=== PATIENT | female | born 1945 | race Caucasian/White ===

== ENCOUNTER 2016-05-17 13:37 | Inpatient (IN) | payer BC, OTHER ==
[~2016-05-17] VITALS: Ht 167.6 cm; Wt 106.7 kg
[~2016-05-17 13:37] MED LIST: ACIT1CAP PO; AMIT50TA3 PO; AMLO2.5T PO; ASPCH81X PO; ATEN-175 PO; ATOR-22 PO; BACL10TA PO; CLOB-65 TOP; EZET10TA63 PO; FRS/40 PO; INSDGI SC; LISI-787 PO; MAGNESIUM PO; METH10TA6 PO; MULT-506 PO; NVLGI SC; OMEG10007 PO; TRAZ50TA35 PO
[2016-05-17] MEDS ORDERED: CLINDAMYCIN 600 MG/54 ML D5W IV ONE (14:45)
[2016-05-17] MEDS ORDERED: FLUT0.15 NAE (14:53)
[2016-05-17] MEDS ORDERED: DULO60CA44 PO (14:53)
[2016-05-17] MEDS ORDERED: DOXY50CA26 PO (14:53)
[2016-05-17] MEDS ORDERED: NYST1POW7 EXT (14:53)
[2016-05-17] MEDS ORDERED: SULF800T23 PO (14:53)
[2016-05-17] MEDS ORDERED: DOXY100C76 PO (14:53)
[2016-05-17] MEDS ORDERED: FLUO0.0566 TOP (14:53)
[2016-05-17] MEDS ORDERED: CLBPO15 TOP (14:53)
[2016-05-17] MEDS ORDERED: GLC/500 PO (14:53)
[2016-05-17] MEDS ORDERED: ALLO100T PO (14:53)
[2016-05-17] MEDS ORDERED: MAGN400T6 PO (14:53)
[2016-05-17 14:55] LABS: BASO % 0.2 %; BASO ABS # 0.02 K/uL (0-0.2); COMPLETE YES; EOS % 4.6 %; HEMATOCRIT 35.1 % (37-47); IG% 0.3 %; LYMPH % 15.3 %; LYMPH ABS # 1.66 K/uL (1.2-3.4); MEAN CORPUSCULAR HEMOGLOBIN 30.3 pg (25-34); MEAN CORPUSCULAR HGB CONC 33.6 g/dl (32-36); MEAN PLATELET VOLUME 10.9 fL (7.4-10.4); MONO % 8.4 %; NEUT % 71.2 %; PLATELET COUNT 170 K/uL (130-400); WHITE BLOOD COUNT 10.83 K/uL (4.8-10.8)
[2016-05-17 15:03] LABS: BUN/CREATININE RATIO 20.7 (10-20); CALCIUM 9.1 mg/dl (8.5-10.1); CREATININE 3.6 mg/dl (0.60-1.20); POTASSIUM 4.5 mmol/L (3.5-5.1)
[2016-05-17 15:06] LABS: C-REACTIVE PROTEIN 6.52 mg/dl (0-0.29)
--- NOTE | 2016-05-17 15:09 | EMERGENCY ROOM VISIT NOTE ---
History Report prepared by Selvin: Amanda Bourgeois Under the Supervision of: Dr. Des Lawson D.O. First contact with patient: 14:30 Chief Complaint: WOUND INFECTION Stated Complaint: BURN ON LEG Nursing Triage Summary: pt here with redness, swelling, drainage to ulcerated area x 5 days. pt has hx of diabetes History of Present Illness The patient is a 70 year old female who presents to the Emergency Room with complaints of a persistent, worsening infection to her left leg that began five days ago. The patient notes that she has a rash over her body as well. She denies any pain to her leg. The patient notes numbness to her legs. She states that she saw her PCP for the infection and was not started on any antibiotics. The patient notes a history of diabetes. She notes that she is a previous smoker 40 years ago, but denies any alcohol use. The patient denies any history of a previous SC. Source of History: patient Onset: five days ago Position: leg (left) Quality: other (infection) Timing: worsening, other (persistent) Associated Symptoms: + numbness, + rash Review of Systems See above for pertinent positives & negatives. A total of 10 systems reviewed and were otherwise negative. Past Medical & Surgical Medical Problems: (1) Diabetes (2) Diabetic foot infection Family History No pertinent family history stated. Social History Smoking Status: Former Smoker Alcohol Use: none Marital Status: Housing Status: lives with significant other Current/Historical Medications Scheduled Allopurinol (Zyloprim), 100 MG PO DAILY Amitriptyline Hcl (Amitriptyline Hcl), 2 TAB PO HS Amlodipine (Norvasc), 2.5 MG PO QAM Aspirin (Aspirin Chewable), 81 MG PO QPM Atenolol (Tenormin), 100 MG PO BID Atorvastatin (Lipitor), 20 MG PO QPM Baclofen (Lioresal), 10 MG PO BID Clobetasol Propionate (Clobetasol Propionate), 1 APPLN TOP BID Doxycycline (Monohydrate) (Doxycycline), 1 TAB PO BID Duloxetine Hcl (Cymbalta), 60 MG PO DAILY Ezetimibe (Zetia), 10 MG PO QPM Fish Oil ([place]-3), 1 CAP PO BID Fluocinonide (Fluocinonide), 1 APPLN TOP BID Fluticasone Propionate (Nasal) (Flonase Allergy Relief), 1 SPRAY AN HS Furosemide (Lasix), 20 MG PO QAM Insulin Aspart (Novolog), 25 UNITS SC ACHS Insulin Glargine (Lantus), 50 SC BID Lisinopril/Hctz (Zestoretic 20MG/12.5MG), 1 TAB PO QAM Magnesium Oxide (Mag-Ox), 400 MG PO DAILY Metformin Hcl (Glucophage), 500 MG PO BID Methimazole (Methimazole), 1 TAB PO QAM Multivitamin (Multivitamin), 1 TAB PO QPM Nystatin (Topical) (Nystatin), 1 APPL EXT TID Sulfa/Trimethoprim (Bactrim Ds 800MG/160MG), 1 TAB PO BID Allergies Coded Allergies: Amoxicillin (Verified Allergy, Intermediate, RASH, 05/17/16) Cephalexin (Verified Allergy, Intermediate, RASH, 05/17/16) Clavulanic Acid (Verified Allergy, Intermediate, RASH, 05/17/16) Gatifloxacin (Verified Allergy, Intermediate, RASH, 05/17/16) Oxycodone (Verified Allergy, Intermediate, RASH, 05/17/16) Physical Exam Vital Signs Date Time Temp Pulse Resp B/P Pulse Ox O2 Delivery O2 Flow Rate FiO2 05/17/16 15:21 84 18 102/48 93 Room Air 05/17/16 13:43 36.8 76 18 98/49 98 Room Air Physical Exam GENERAL: Patient is well appearing and in no acute distress. HEENT: No acute trauma, normocephalic atraumatic, mucous membranes moist, no nasal congestion, no scleral icterus. NECK: No stridor, no adenopathy, no meningismus, trachea is midline. LUNGS: No dyspnea. Clear to auscultation and equal bilaterally. No wheeze, no rhonchi. HEART: Regular rate and rhythm. No murmurs, rubs, gallops appreciated. ABDOMEN: Soft, nontender, bowel sounds positive, no masses appreciated, no peritonitis. BACK: No midline tenderness, no CVA tenderness EXTREMITIES: Pinpoint wound to the left heel. Cellulitis extending up to the tibial plateau that is circumferential and weeping. Mild lymphangitis. NEUROLOGIC: Alert and oriented, no acute motor or sensory deficits, no focal weakness, cranial nerves grossly intact. SKIN: No rash, no jaundice, no diaphoresis. Medical Decision & Procedures ER Provider Diagnostic Interpretation: X ray results and stated below per my interpretation and radiologist interpretation. Other radiology results and stated below per my review and radiologist interpretation: LEFT FOOT MIN 3 VIEWS ROUTINE CLINICAL HISTORY: CELLULITIS ON LEFT HEEL infection COMPARISON: None. DISCUSSION: Moderate generalized degenerative change. Moderate soft tissue edematous change. Heel spur with moderate ossification of the Achilles tendon insertion. No lytic or blastic process. IMPRESSION: Moderate soft tissue edema. Degenerative bony change. No acute bony abnormality. Electronically signed by: Keith Sorto M.D. 05/17/2016 3:48 PM Dictated Date/Time: 05/17/2016 3:47 PM LEFT TIBIA/FIBULA 2 VIEWS ROUTINE CLINICAL HISTORY: cellulitis wound on left heel pain COMPARISON: None. DISCUSSION: The bones and joint spaces appear intact. There is no evidence of fracture, dislocation or bony disease. Mild soft tissue edema IMPRESSION: Mild soft tissue edema. No acute bony abnormality. Electronically signed by: Keith Sorto M.D. 05/17/2016 3:49 PM Dictated Date/Time: 05/17/2016 3:48 PM Laboratory Results 05/17/16 14:25 Red Blood Count 3.90, Mean Corpuscular Volume 90.0, Mean Corpuscular Hemoglobin 30.3, Mean Corpuscular Hemoglobin Concent 33.6, Mean Platelet Volume 10.9, Neutrophils (%) (Auto) 71.2, Lymphocytes (%) (Auto) 15.3, Monocytes (%) (Auto) 8.4, Eosinophils (%) (Auto) 4.6, Basophils (%) (Auto) 0.2, Neutrophils # (Auto) 7.71, Lymphocytes # (Auto) 1.66, Monocytes # (Auto) 0.91, Eosinophils # (Auto) 0.50, Basophils # (Auto) 0.02 05/17/16 14:25 Test 05/17/16 14:25 05/17/16 15:00 05/17/16 15:42 05/17/16 15:43 White Blood Count 10.83 K/uL (4.8-10.8) Red Blood Count 3.90 M/uL (4.2-5.4) Hemoglobin 11.8 g/dL (12.0-16.0) Hematocrit 35.1 % (37-47) Mean Corpuscular Volume 90.0 fL (80-100) Mean Corpuscular Hemoglobin 30.3 pg (25-34) Mean Corpuscular Hemoglobin Concent 33.6 g/dl (32-36) Platelet Count 170 K/uL (130-400) Mean Platelet Volume 10.9 fL (7.4-10.4) Neutrophils (%) (Auto) 71.2 % Lymphocytes (%) (Auto) 15.3 % Monocytes (%) (Auto) 8.4 % Eosinophils (%) (Auto) 4.6 % Basophils (%) (Auto) 0.2 % Neutrophils # (Auto) 7.71 K/uL (1.4-6.5) Lymphocytes # (Auto) 1.66 K/uL (1.2-3.4) Monocytes # (Auto) 0.91 K/uL (0.11-0.59) Eosinophils # (Auto) 0.50 K/uL (0-0.5) Basophils # (Auto) 0.02 K/uL (0-0.2) RDW Standard Deviation 47.4 fL (36.4-46.3) RDW Coefficient of Variation 14.4 % (11.5-14.5) Immature Granulocyte % (Auto) 0.3 % Immature Granulocyte # (Auto) 0.03 K/uL (0.00-0.02) Erythrocyte Sedimentation Rate 58 mm/hr (0-21) Anion Gap 12.0 mmol/L (3-11) Est Creatinine Clear Calc Drug Dose 17.5 ml/min Estimated GFR () 13.9 Estimated GFR (Non- 12.0 BUN/Creatinine Ratio 20.7 (10-20) Calcium Level 9.1 mg/dl (8.5-10.1) Total Bilirubin 0.4 mg/dl (0.2-1) Direct Bilirubin 0.1 mg/dl (0-0.2) Aspartate Amino Transf (AST/SGOT) 25 U/L (15-37) Alanine Aminotransferase (ALT/SGPT) 47 U/L (12-78) Alkaline Phosphatase 93 U/L (45-117) C-Reactive Protein 6.52 mg/dl (0-0.29) Total Protein 7.7 gm/dl (6.4-8.2) Albumin 3.3 gm/dl (3.4-5.0) Lipase 96 U/L (73-393) Lactic Acid Level 1.4 mmol/L (0.4-2.0) Laboratory results as reviewed by me. Medications Administered Medications (Trade) Dose Ordered Sig/Brodie Route Start Time Stop Time Status Last Admin Dose Admin Clindamycin Phosphate (Cleocin 600mg/ 54ml D5W) 600 mg ONE ONCE IV 05/17/16 14:45 05/17/16 14:46 DC 05/17/16 14:45 600 MG ED Course 1432: The patient was evaluated in room C2B. A complete history and physical exam was performed. 1445: Ordered Clindamycin Phosphate 600 mg IV. 1537: I reevaluated the patient and she is resting comfortably. I discussed the exam findings and I discussed the treatment plan with her. She verbalized complete understanding and agreement. She is going to be evaluated for further treatment. 1545: Ordered Sodium Chloride 1000 ml @ 100 mls/hr IV. 1547: I discussed the patient's case with Yoav Luna. She is going to evaluate the patient for further treatment. Medical Decision Differential diagnosis: Etiologies such as cellulitis, abscess, MRSA infection, DVT, necrotizing fasciitis, dermatitis, drug eruption, as well as others were entertained. Patient is a 70-year-old female with significant past medical history for diabetes and recurrent lower extremity wound infections she is sent in by her primary care provider for worsening cellulitis and redness and streaking of the left lower extremity. Her primary care provider put her on a single Bactrim double strength 1 tablet twice a day she started this on the . She has failed an outpatient trial of therapy, accordingly and bring her in for lower extremity cellulitis starting her on 600 mg IV clindamycin and I have discussed her case with the hospitalist. Review of her basic metabolic panel revealed a creatinine of 3.6 and BUN is 74, her potassium is 4.5. Patient reports that she follows up with a cooler service supervisor for kidney issues I don't have any records indicating what her baseline creatinine may be. Consults Time Called: 1544 Consulting Physician: Yoav Luna Returned Call: 1547 I discussed the patient's case with Yoav Luna. She is going to evaluate the patient for further treatment. Impression Primary Impression: Cellulitis of left lower extremity Additional Impressions: Cellulitis of left foot Open wound of left foot Creatinine elevation Elevated BUN Anemia Hypoalbuminemia Elevated C-reactive protein (CRP) Elevated erythrocyte sedimentation rate Scribe Attestation The scribe's documentation has been prepared under my direction and personally reviewed by me in its entirety. I confirm that the note above accurately reflects all work, treatment, procedures, and medical decision making performed by me. Departure Information Dispostion Being Evaluated By Hospitalist Referrals Jennifer Diaz PA-C (PCP) Patient Instructions My [facility] Problem Qualifiers
--- NOTE | 2016-05-17 15:48 | History and Physical ---
History & Physical Date & Time of Service: May 17, 2016 at 15:44 Chief Complaint: Burn On Leg Primary Care Physician: Jennifer Diaz PA-C History of Present Illness Source: patient 70 yo F with past medical hx of Type 2 DM , HTN , scleroderma , Psoriasis . CKD stage 3 presented to ED with complain of pain , swelling and erythema of rt lower ext started since last pt denies of any trauma or injury to her leg , has chronic skin rash -for Psoriasis , scleroderma, gets occasional blisters lower 2/3 of her right leg was found to be dark red , increased warmth , minimum tenderness pt was able to walk , bear weight no fever or chills was seen by Rheumatology in recent visit started on Bactrim DS form 05/14/16 no improvement of symptom came to ED for evaluation found to have persisted rt lower ext Cellulitis , FAISAL Cr > 3 ( baseline Cr 1.4 ) pt will be admitted for IV abx for lower ext cellulitis , IV hydration and nephrology eval for FAISAL Past Medical/Surgical History Medical Problems: (1) Diabetes Status: Chronic Medical Problems: (1) Diabetes Status: Chronic Family History Sister-Arthritis Sister - CVA at age 49 ; /DM/HTN Sister- granulomatous dermatitis FATHER -COPD Social History Smoking Status: Former Smoker Marital Status: Allergies Coded Allergies: Amoxicillin (Verified Allergy, Intermediate, RASH, 05/17/16) Cephalexin (Verified Allergy, Intermediate, RASH, 05/17/16) Clavulanic Acid (Verified Allergy, Intermediate, RASH, 05/17/16) Gatifloxacin (Verified Allergy, Intermediate, RASH, 05/17/16) Oxycodone (Verified Allergy, Intermediate, RASH, 05/17/16) Home Medications Scheduled Allopurinol (Zyloprim), 100 MG PO DAILY Amitriptyline Hcl (Amitriptyline Hcl), 2 TAB PO HS Amlodipine (Norvasc), 2.5 MG PO QAM Aspirin (Aspirin Chewable), 81 MG PO QPM Atenolol (Tenormin), 100 MG PO BID Atorvastatin (Lipitor), 20 MG PO QPM Baclofen (Lioresal), 10 MG PO BID Clobetasol Propionate (Clobetasol Propionate), 1 APPLN TOP BID Doxycycline (Monohydrate) (Doxycycline), 1 TAB PO BID Duloxetine Hcl (Cymbalta), 60 MG PO DAILY Ezetimibe (Zetia), 10 MG PO QPM Fish Oil ([place]-3), 1 CAP PO BID Fluocinonide (Fluocinonide), 1 APPLN TOP BID Fluticasone Propionate (Nasal) (Flonase Allergy Relief), 1 SPRAY AN HS Furosemide (Lasix), 20 MG PO QAM Insulin Aspart (Novolog), 25 UNITS SC ACHS Insulin Glargine (Lantus), 50 SC BID Lisinopril/Hctz (Zestoretic 20MG/12.5MG), 1 TAB PO QAM Magnesium Oxide (Mag-Ox), 400 MG PO DAILY Metformin Hcl (Glucophage), 500 MG PO BID Methimazole (Methimazole), 1 TAB PO QAM Multivitamin (Multivitamin), 1 TAB PO QPM Nystatin (Topical) (Nystatin), 1 APPL EXT TID Sulfa/Trimethoprim (Bactrim Ds 800MG/160MG), 1 TAB PO BID Review of Systems Constitutional: + fatigue, + weakness Respiratory: No cough, No dyspnea at rest, No dyspnea on exertion, No hemoptysis, No problem reported, No shortness of breath, No sputum, No wheezing Cardiovascular: No PND, No chest pain, No claudication, No edema, No orthopnea , No palpitations, No problem reported Abdomen: No GI bleeding, No constipation, No diarrhea, No nausea, No pain, No problem reported, No vomiting Musculoskeletal: + problem reported (as per H&P ) Genitourinary - Female: No dysmenorrhea, No dysuria, No hematuria, No menorrhagia, No metrorrhagia, No , No problem reported, No rash, No urinary frequency, No urinary incontinence, No urinary retention, No urinary urgency, No vaginal bleeding, No vaginal discharge, No vaginal itching, No vulvodynia Neurologic: + weakness Physical Exam Vital Signs Date Time Temp Pulse Resp B/P Pulse Ox O2 Delivery O2 Flow Rate FiO2 05/17/16 15:21 84 18 102/48 93 Room Air 05/17/16 13:43 36.8 76 18 98/49 98 Room Air General Appearance: no apparent distress Head: normocephalic, atraumatic Eyes: normal inspection, PERRL, EOMI, sclerae normal Neck: thyroid normal, no carotid bruits, trachea midline Respiratory/Chest: chest non-tender, lungs clear, normal breath sounds, no respiratory distress Cardiovascular: regular rate, rhythm Abdomen/GI: normal bowel sounds, non tender, soft Extremities/Musculoskelatal: + pertinent finding (rt middle leg + ertythema , warmth , tenderness, ) Neurologic/Psych: no motor/sensory deficits, alert, normal mood/affect Skin: + pertinent finding (diffuse scaly plaque on elbow , extremitiy .Psoriatic rash ) Diagnostics Laboratory Results Results Past 24 Hours Test 05/17/16 14:25 05/17/16 15:00 05/17/16 15:42 05/17/16 15:43 Range/Units White Blood Count 10.83 4.8-10.8 K/uL Red Blood Count 3.90 4.2-5.4 M/uL Hemoglobin 11.8 12.0-16.0 g/dL Hematocrit 35.1 37-47 % Mean Corpuscular Volume 90.0 80-100 fL Mean Corpuscular Hemoglobin 30.3 25-34 pg Mean Corpuscular Hemoglobin Concent 33.6 32-36 g/dl Platelet Count 170 130-400 K/uL Mean Platelet Volume 10.9 7.4-10.4 fL Neutrophils (%) (Auto) 71.2 % Lymphocytes (%) (Auto) 15.3 % Monocytes (%) (Auto) 8.4 % Eosinophils (%) (Auto) 4.6 % Basophils (%) (Auto) 0.2 % Neutrophils # (Auto) 7.71 1.4-6.5 K/uL Lymphocytes # (Auto) 1.66 1.2-3.4 K/uL Monocytes # (Auto) 0.91 0.11-0.59 K/uL Eosinophils # (Auto) 0.50 0-0.5 K/uL Basophils # (Auto) 0.02 0-0.2 K/uL RDW Standard Deviation 47.4 36.4-46.3 fL RDW Coefficient of Variation 14.4 11.5-14.5 % Immature Granulocyte % (Auto) 0.3 % Immature Granulocyte # (Auto) 0.03 0.00-0.02 K/uL Erythrocyte Sedimentation Rate 58 0-21 mm/hr Sodium Level 140 136-145 mmol/L Potassium Level 4.5 3.5-5.1 mmol/L Chloride Level 102 98-107 mmol/L Carbon Dioxide Level 26 21-32 mmol/L Anion Gap 12.0 3-11 mmol/L Blood Urea Nitrogen 74 7-18 mg/dl Creatinine 3.60 0.60-1.20 mg/dl Est Creatinine Clear Calc Drug Dose 17.5 ml/min Estimated GFR () 13.9 Estimated GFR (Non- 12.0 BUN/Creatinine Ratio 20.7 10-20 Random Glucose 99 70-99 mg/dl Calcium Level 9.1 8.5-10.1 mg/dl Total Bilirubin 0.4 0.2-1 mg/dl Direct Bilirubin 0.1 0-0.2 mg/dl Aspartate Amino Transf (AST/SGOT) 25 15-37 U/L Alanine Aminotransferase (ALT/SGPT) 47 12-78 U/L Alkaline Phosphatase 93 45-117 U/L C-Reactive Protein 6.52 0-0.29 mg/dl Total Protein 7.7 6.4-8.2 gm/dl Albumin 3.3 3.4-5.0 gm/dl Lipase 96 73-393 U/L Lactic Acid Level 1.4 0.4-2.0 mmol/L Microbiology Results 05/17/16 Blood Culture, Received Pending 05/17/16 Blood Culture, Received Pending Impression Assessment and Plan RT LOWER EXTREMITY CELLULITIS : -no evidence of sepsis -mild leukocytosis, normal lactic acid -lower ext Doppler ordered to R/o DVT -blood culture ordered -empiric Abx with vancomycin Added Cipro for gram negative /Pseudomonas coverage ( pt is diabetic ) FAISAL ON CKD STAGE 3 presents with Cr 3.6 possible due to Bactrim pt reports of normal appetite , no diarrhea , no fever cr 1.4 on IV Hydration ( Bactrim D/rosalba -should be avoided in future as well ) Hold home diuretics -Lasix , HCTZ , ACEI follow PRP Nephrology consulted SCLERODERMA/PSORIASIS : follows with Rheumatology and Dermatology will change Diet to mechanical soft diet -new complaint of mild difficulty with swallowing. HTN : BP stable cont Atenolol 100 mg PO BID hold diuretics Due to FAISAL will hold Norvasc -will cause worsening of lower ext edema /fluid retention TYPE 2 DM: pt reports of episodes of hypoglycemia recent Hb A1c 6.3 -suggestive of too tight glycemic control on Large dose of Lantus 70 U in AM /50 U in PM SSI with NovoLog 25-35 U sub q as directed Lantus dose reduced to 30 U BID SSI adjusted pharmacy consulted for glycemic management FULL CODE DVT PROPHYLAX : moderate to high risk Sub q heparin Lower ext Doppler ordered to R/O DVT DISPOSITION : expected to return to home when medically stable will benefit form Home Health visiting nurse to assess improvement of cellulitis of lower ext Social service consulted Dr West will continue to follow the patient form tomorrow VTE Prophylaxis VTE Risk Assessment Done? Y/N: Yes Risk Level: Moderate
--- NOTE | 2016-05-17 15:50 | DIAGNOSTIC IMAGING REPORT ---
LEFT FOOT MIN 3 VIEWS ROUTINE CLINICAL HISTORY: CELLULITIS ON LEFT HEEL infection COMPARISON: None. DISCUSSION: Moderate generalized degenerative change. Moderate soft tissue edematous change. Heel spur with moderate ossification of the Achilles tendon insertion. No lytic or blastic process. IMPRESSION: Moderate soft tissue edema. Degenerative bony change. No acute bony abnormality. Electronically signed by: Keith Sorto M.D. 05/17/2016 3:48 PM Dictated Date/Time: 05/17/2016 3:47 PM
--- NOTE | 2016-05-17 15:51 | DIAGNOSTIC IMAGING REPORT ---
LEFT TIBIA/FIBULA 2 VIEWS ROUTINE CLINICAL HISTORY: cellulitis wound on left heel pain COMPARISON: None. DISCUSSION: The bones and joint spaces appear intact. There is no evidence of fracture, dislocation or bony disease. Mild soft tissue edema IMPRESSION: Mild soft tissue edema. No acute bony abnormality. Electronically signed by: Keith Sorto M.D. 05/17/2016 3:49 PM Dictated Date/Time: 05/17/2016 3:48 PM
[2016-05-17] MEDS ORDERED: NURSING DECISION MEDICATION ORDER SCH (16:00)
[2016-05-17 16:01] LABS: INR 1.1 (0.9-1.1)
[2016-05-17 18:03] VITALS: Ht 167.6 cm; Wt 106.7 kg
[2016-05-17 18:12] VITALS: BP 126/62; PULSE 90; TEMP 36.8; O2SAT 95
[2016-05-17] MEDS ORDERED: VANCOMYCIN INJ 1,000 MG in SODIUM CHLORIDE 0.9% 250ML 250 ML IV STA (19:31)
[2016-05-17] MEDS ORDERED: DEXTROSE 50% 50 ML SYR IV PRN (19:45)
[2016-05-17] MEDS ORDERED: GLUCOSE 10 TABS/TUBE PO PRN (19:45)
[2016-05-17] MEDS ORDERED: GLUCAGON FOR INJ 1 MG VIAL SQ PRN (19:45)
[2016-05-17] MEDS ORDERED: GLUCOSE 40% GEL 15 GM TUBE PO PRN (19:45)
[2016-05-17] MEDS ORDERED: PHARMACY GLYCEMIC MGMT CONSULT PRN (19:47)
[2016-05-17 20:00] VITALS: BP 145/76; PULSE 95; TEMP 36.9; O2SAT 98
[2016-05-17] MEDS ORDERED: VANCOMYCIN INJ 2,000 MG in SODIUM CHLORIDE 0.9% 500ML 500 ML IV SCH (20:00)
[2016-05-17] MEDS ORDERED: SODIUM CHLORIDE 0.9% 1000ML 1,000 ML IV SCH (20:00)
[2016-05-17] MEDS: SODIUM CHLORIDE 0.9% 1000ML 1,000 ML IV SCH (20:29)
[2016-05-17] MEDS ORDERED: CIPROFLOXACIN CONSULT ACTIVE PRN ×2 (20:45)
[2016-05-17] MEDS: NYSTATIN POWDER 15GM BTL EXT SCH (20:55)
[2016-05-17] MEDS: ATORVASTATIN 20 MG TAB PO SCH (20:56)
[2016-05-17] MEDS: CLOBETASOL PROPIONATE 0.05% OINT 15 GM TUBE EXT SCH (20:56)
[2016-05-17] MEDS: AMITRIPTYLINE HCL 100 MG TAB PO SCH (20:56)
[2016-05-17] MEDS: MULTIVITAMIN TAB PO SCH (20:57)
[2016-05-17] MEDS: OMEGA-3 (PURIFIED FISH OIL) 1 GM CAP PO SCH (20:57)
[2016-05-17] MEDS: EZETIMIBE 10MG TAB PO SCH (20:57)
[2016-05-17] MEDS: ASPIRIN 81 MG ECTAB PO SCH (20:58)
[2016-05-17] MEDS: BACLOFEN 10 MG TAB PO SCH (20:58)
[2016-05-17] MEDS ORDERED: VANCOMYCIN INJ 1,000 MG in SODIUM CHLORIDE 0.9% 250ML 250 ML IV SCH (21:00)
[2016-05-17] MEDS: INSULIN ASPART 100 UNITS/ML 3 ML PEN SC SCH (21:00)
[2016-05-17] MEDS ORDERED: INSULIN GLARGINE SOLOSTAR 100 UNITS/ML 3 ML PEN SC SCH (21:00)
[2016-05-17] MEDS ORDERED: INSULIN HUMAN REGULAR SC SCH (21:00)
[2016-05-17] MEDS: FLUTICASONE PROPIONATE NA SPR 16 GM BTL NAE SCH (21:03)
[2016-05-17 23:48] VITALS: BP 92/56; PULSE 81; TEMP 36.7; O2SAT 94
[2016-05-18] VITALS (8 sets, daily range): BP systolic 103–134; BP diastolic 51–79; PULSE 69–76; TEMP 36.4–36.7; O2SAT 94–97
[2016-05-18] MEDS: CIPROFLOXACIN / D5W 400 MG in PREMIXED IN D5W 200 ML IV SCH ×2 (00:25→20:52)
[2016-05-18] MEDS: SODIUM CHLORIDE 0.9% 1000ML 1,000 ML IV SCH ×3 (01:45→21:22)
[2016-05-18 06:28] LABS: ESTIMATED AVERAGE GLUCOSE 143 mg/dl; HA1C FLAG Normal (Normal)
[2016-05-18 06:48] LABS: HEMATOCRIT 33.6 % (37-47); MEAN CELL VOLUME 91.1 fL (80-100); MEAN CORPUSCULAR HEMOGLOBIN 29.8 pg (25-34); MEAN CORPUSCULAR HGB CONC 32.7 g/dl (32-36); MEAN PLATELET VOLUME 10.5 fL (7.4-10.4); PLATELET COUNT 137 K/uL (130-400); RED BLOOD COUNT 3.69 M/uL (4.2-5.4); WHITE BLOOD COUNT 7.69 K/uL (4.8-10.8)
[2016-05-18 07:13] LABS: BUN/CREATININE RATIO 25.2 (10-20); CALCIUM 8.7 mg/dl (8.5-10.1); CREATININE 2.7 mg/dl (0.60-1.20); MAGNESIUM 2.9 mg/dl (1.8-2.4); POTASSIUM 4.7 mmol/L (3.5-5.1)
[2016-05-18 07:23] LABS: THYROID STIMULATING HORMONE 4.03 uIu/ml (0.300-4.500)
[2016-05-18] MEDS: ALLOPURINOL 100 MG TAB PO SCH (08:05)
[2016-05-18] MEDS: OMEGA-3 (PURIFIED FISH OIL) 1 GM CAP PO SCH ×2 (08:05→20:53)
[2016-05-18] MEDS: DULOXETINE HCL 60 MG CAP PO SCH (08:06)
[2016-05-18] MEDS: METHIMAZOLE 5 MG TAB PO SCH (08:06)
[2016-05-18] MEDS: BACLOFEN 10 MG TAB PO SCH ×2 (08:06→20:53)
[2016-05-18] MEDS: CLOBETASOL PROPIONATE 0.05% OINT 15 GM TUBE EXT SCH ×2 (08:07→20:53)
[2016-05-18] MEDS: INSULIN ASPART 100 UNITS/ML 3 ML PEN SC SCH ×4 (08:09→21:23)
[2016-05-18] MEDS: INSULIN GLARGINE SOLOSTAR 100 UNITS/ML 3 ML PEN SC SCH ×2 (08:09→21:25)
[2016-05-18] MEDS: NYSTATIN POWDER 15GM BTL EXT SCH ×3 (08:14→20:53)
[2016-05-18] MEDS ORDERED: VANCOMYCIN INJ 1,600 MG in SODIUM CHLORIDE 0.9% 500ML 500 ML IV SCH (08:30)
[2016-05-18] MEDS ORDERED: VANCOMYCIN CONSULT ACTIVE PRN (08:30)
--- NOTE | 2016-05-18 08:52 | Clinical Documentation Query ---
KAUSHIK Conrad : CLINICAL DOCUMENTATION QUERY Patient is a 70 year old female admitted with "right lower extremity cellulitis" and FAISAL on CKD stage 3. ED provider documentation includes "cellulitis of left lower extremity". All lower extremity radiology was performed on the left side. Please clarify laterality discrepancy as clinically appropriate. Additionally, triage documentation includes "pt here with redness, swelling, drainage to ulcerated area". Admission RN noted a stage 2 ulcer of the left heel. Please clarify the (likely/suspected/probable) etiology as appropriate and include POA status as this otherwise is considered a hospital acquired condition .Thank you. In your clinical opinion is this patient being managed for: ( ) Left heel diabetic ulcer, POA (x ) Left heel pressure ulcer, stage __2__ in the setting of type 2 diabetes, POA ( ) Right heel diabetic ulcer, POA ( ) RIght heel pressure ulcer, stage ____ in the setting of type 2 diabetes, POA ( ) Other explanation of clinical findings (Please Explain) ( ) Unable to determine (Please Define) ( ) Need to Discuss ( ) Not Agree The medical record reflects the following clinical findings, treatment, and risk factors. Clinical Indicators: As above Treatment: IV antibiotics, serial labs, telemetry Risk Factors: Age, diabetes, obesity Please clarify and document your clinical opinion in the progress notes and discharge summary. Terms such as "probable", "suspected", "likely", "questionable", "possible", or "still to be ruled out" are acceptable. IF IN AGREEMENT, YOU MUST DOCUMENT ABOVE DIAGNOSTIC STATEMENT IN DAILY PROGRESS NOTES AND DISCHARGE SUMMARY. This document is not part of the patient's record. Thank You, Des Davis, SHERWIN [phone]
[2016-05-18] MEDS ORDERED: INSULIN GLARGINE SOLOSTAR 100 UNITS/ML 3 ML PEN SC SCH (09:00)
--- NOTE | 2016-05-18 09:28 | DIAGNOSTIC IMAGING REPORT ---
BILATERAL LOWER EXTREMITY VENOUS DOPPLER HISTORY: Leg swelling /erythema rule out DVT COMPARISON STUDY: None. FINDINGS: There is normal compressibility and flow within the bilateral lower extremity deep venous systems. The patient deferred augmentation of the veins. IMPRESSION: No DVT within the right or left lower extremity. Electronically signed by: Arthur De La Cruz M.D. 05/18/2016 9:27 AM Dictated Date/Time: 05/18/2016 9:26 AM
--- NOTE | 2016-05-18 09:50 | Nephrology Consultation ---
Nephrology Consultation Date of Consultation: May 18, 2016. Attending Physician: Dr West Requesting Physician: Dr Gilmore Reason for Consultation: Acute on chronic kidney injury History of Present Illness 70 year old female admitted last evening for mgt of L diabetic foot infection after failing outpt mgt and noted to have FAISAL. Other PMH includes DM on insulin and metformin, gout, HL, htn since 1994, CREST variant/ limited scleroderma, psoriasis, Graves disease on methimazole, sleep apnea on CPAP, remote 20 pk yr hx of smoking quit in , CAD s/p 2004 stents, osteoarthritis w/ frequent nsaid use, back surgery remotely. On hctz, lisinopril, lasix as an outpt. She had been on bactrim since 05/14. Her baseline creatinine is in the mid 1's; was 3.6 on presentation w/ potassium 4.5. blood cultures are pending. after holding bactrim and appropriate bp meds , and w/ tx of foot infection and fluid resuscitation, creatinine is 2.7 today. States she follows w/ nephrology in [place] but I find no record of this. NO f/c or systemic complaints. She came to hospital d/t worsening redness distal LLE. She has been following with the wound clinic for several months she states. She follows w/ me in ckd clinic for ckd 3 w/ albuminuria 500 mg daily > when she est w/ me in summer 2015 had been on daily meloxicam and full dose ASA for over 1 and 10 years resepectively. Not a reliable historian. Past Medical/Surgical History Medical Problems: (1) Anemia Status: Acute (2) Cellulitis of left foot Status: Acute (3) Cellulitis of left lower extremity Status: Acute (4) Creatinine elevation Status: Acute (5) Elevated BUN Status: Acute (6) Elevated C-reactive protein (CRP) Status: Acute (7) Elevated erythrocyte sedimentation rate Status: Acute (8) Hypoalbuminemia Status: Acute (9) Open wound of left foot Status: Acute as per hpi Family History Asthma FATHER Hypertension SISTER Stroke SISTER, Onset:49 Social History Smoking Status: Former Smoker Alcohol Use: none Drug Use: none Marital Status: Housing Status: lives with significant other Allergies Coded Allergies: Amoxicillin (Verified Allergy, Intermediate, RASH, 05/17/16) Cephalexin (Verified Allergy, Intermediate, RASH, 05/17/16) Clavulanic Acid (Verified Allergy, Intermediate, RASH, 05/17/16) Gatifloxacin (Verified Allergy, Intermediate, RASH, 05/17/16) Oxycodone (Verified Allergy, Intermediate, RASH, 05/17/16) Medications Current Inpatient Medications Medications (Trade) Dose Ordered Sig/Brodie Route Start Time Stop Time Status Last Admin Dose Admin Sodium Chloride 1,000 ml @ 100 mls/hr Q10H IV 05/17/16 15:45 06/16/16 15:44 05/18/16 08:14 100 MLS/HR Ciprofloxacin/ Dextrose/Prmx (Cipro / D5w/ Premixed D5W) 200 ml @ 100 mls/hr Q24H IV 05/17/16 21:00 05/27/16 20:59 05/18/16 00:25 100 MLS/HR Allopurinol (Zyloprim Tab) 100 mg DAILY PO 05/18/16 09:00 06/17/16 08:59 05/18/16 08:05 100 MG Amitriptyline HCl (Elavil Tab) 100 mg HS PO 05/17/16 21:00 06/16/16 20:59 05/17/16 20:56 100 MG Aspirin (Ecotrin Tab) 81 mg QPM PO 05/17/16 21:00 06/16/16 20:59 05/17/16 20:58 81 MG Atenolol (Tenormin Tab) 100 mg BID PO 05/17/16 21:00 06/16/16 20:59 05/18/16 08:06 100 MG Atorvastatin Calcium (Lipitor Tab) 20 mg QPM PO 05/17/16 21:00 06/16/16 20:59 05/17/16 20:56 20 MG Baclofen (Lioresal Tab) 10 mg BID PO 05/17/16 21:00 06/16/16 20:59 05/18/16 08:06 10 MG Duloxetine HCl (Cymbalta Cap) 60 mg DAILY PO 05/18/16 09:00 06/17/16 08:59 05/18/16 08:06 60 MG EZETIMIBE (Zetia Tab) 10 mg QPM PO 05/17/16 21:00 06/16/16 20:59 05/17/16 20:57 10 MG Fish Oil (Dittmer-3 (Purified Fish Oil) Cap) 1 gm BID PO 05/17/16 21:00 06/16/16 20:59 05/18/16 08:05 1 GM Fluticasone Propionate (Flonase Nasal [place]) 1 sprays HS AN 05/17/16 21:00 06/16/16 20:59 05/17/16 21:03 1 SPRAYS Multivitamins (Multivitamin Tab) 1 tab QPM PO 05/17/16 21:00 06/16/16 20:59 05/17/16 20:57 1 TAB Clobetasol Propionate (Clobetasol Propionate Oint) 1 appln BID EXT 05/17/16 21:00 06/16/16 20:59 05/18/16 08:07 1 APPLN Miscellaneous Information (Order Awaiting Action) 1 ea QS N/A 05/18/16 00:00 06/17/16 00:00 Methimazole (Methimazole Tab) 10 mg QAM PO 05/18/16 09:00 06/17/16 08:59 05/18/16 08:06 10 MG Nystatin (Mycostatin Powder) 1 appln TID EXT 05/17/16 21:00 06/16/16 20:59 05/17/16 20:55 1 APPLN Glucose (Glucose 40% Gel) 15-30 GRAMS 15 GRAMS... UD PRN PO 05/17/16 19:45 06/16/16 19:44 Glucose (Glucose Chew Tab) 4-8 Tablets 4 Tabl... UD PRN PO 05/17/16 19:45 06/16/16 19:44 Dextrose (Dextrose 50% 50ML Syringe) 25-50ML OF 50% DW IV FOR... UD PRN IV 05/17/16 19:45 06/16/16 19:44 Glucagon (Glucagon Inj) 1 mg UD PRN SQ 05/17/16 19:45 06/16/16 19:44 Miscellaneous Information (Consult Glycemic Management Pharmacy) 1 ea DAILY PRN N/A 05/17/16 19:47 06/16/16 19:46 Ciprofloxacin (Consult) 1 ea UD PRN N/A 05/17/16 20:45 06/16/16 20:44 Insulin Aspart (novoLOG ASPART) SLIDING SCALE ACHS SC 05/17/16 21:00 06/16/16 20:59 05/18/16 08:09 13 UNITS Insulin Glargine 35 unit 35 unit BID SC 05/18/16 09:00 06/17/16 08:59 05/18/16 08:09 35 UNIT Vancomycin HCl/ Sodium Chloride (Vancomycin Inj/ Nss 500ml) 532 ml @ 200 mls/hr TODAY@0830 IV 05/18/16 08:30 05/18/16 11:10 Vancomycin HCl (Consult) 1 ea UD PRN N/A 05/18/16 08:30 06/17/16 08:29 Home Meds and Scripts Medications Dose Route/Sig Max Daily Dose Days Date Category Dose Instructions Glucophage (Metformin Hcl) 500 Mg Tab 500 Mg PO BID 05/17/16 Reported Bactrim Ds 800MG/160MG (Trimethoprim/Sulfamethoxazole) Tab 1 Tab PO BID 05/17/16 Reported Fluocinonide 0.05 % Sharyn 1 Appln TOP BID 30 05/17/16 Reported Doxycycline (Doxycycline (Monohydrate)) 50 Mg Cap 1 Tab PO BID 05/17/16 Reported Cymbalta (Duloxetine Hcl) 60 Mg Cap 60 Mg PO DAILY 05/17/16 Reported Flonase Allergy Relief (Fluticasone Propionate (Nasal)) 50 Mcg/Act Spr 1 [place] AN HS 05/17/16 Reported Mag-Ox (Magnesium Oxide) 400 Mg Tab 400 Mg PO DAILY 05/17/16 Reported Nystatin (Nystatin (Topical)) 1 Pow Pow 1 Appl EXT TID 05/17/16 Reported Zyloprim (Allopurinol) 100 Mg Tab 100 Mg PO DAILY 05/17/16 Reported Clobetasol Propionate 45 Appln/15 Gm Oint 1 Appln TOP BID 30 05/17/16 Reported Multivitamin (Multivitamins) Tab 1 Tab PO QPM 12/04/15 Reported Dittmer-3 (Fish Oil) 1 Ea Cap 1 Cap PO BID 12/04/15 Reported Methimazole 10 Mg Tab 1 Tab PO QAM 12/04/15 Reported Novolog (Insulin Aspart) Inj 25 Units SC ACHS 12/04/15 Reported SLIDING SCALE 25-35 UNITS Lantus (Insulin Glargine) Vial 50 SC BID 12/04/15 Reported SLIDING SCALE UP TO 60 UNITS Zestoretic 20MG/12.5MG (HCTZ/Lisinopril) Tab 1 Tab PO QAM 12/04/15 Reported Lasix (Furosemide) 40 Mg Tab 20 Mg PO QAM 12/04/15 Reported Zetia (Ezetimibe) 10 Mg Tab 10 Mg PO QPM 12/04/15 Reported Lioresal (Baclofen) 10 Mg Tab 10 Mg PO BID 12/04/15 Reported Lipitor (Atorvastatin Calcium) 20 Mg Tab 20 Mg PO QPM 12/04/15 Reported Tenormin (Atenolol) 100 Mg Tab 100 Mg PO BID 12/04/15 Reported Aspirin Chewable (Aspirin) 81 Mg Chew 81 Mg PO QPM 12/04/15 Reported Norvasc (Amlodipine Besylate) 2.5 Mg Tab 2.5 Mg PO QAM 12/04/15 Reported Amitriptyline Hcl 50 Mg Tab 2 Tab PO HS 12/04/15 Reported Review of Systems Constitutional: No fever, No sweats, No weakness Eyes: No redness ENT: No hearing loss, No unusual epistaxis Respiratory: No cough, No dyspnea on exertion, No shortness of breath Cardiac: No chest pain Abdomen: + constipation, No diarrhea, No nausea, No pain, No vomiting Musculoskeletal: + joint pain, + see HPI Female : + problem reported (denies gross hematuria, frequency, urgency, retention) Neuro: + balance problems, No memory loss, No weakness Psych: No depression symptoms Heme: No abnormal bleeding/bruising Endo: + fatigue Skin: + rash (states has had body rash x 2 mos and rash on distal LLE for 3-5 days) Physical Exam Date Time Temp Pulse Resp B/P Pulse Ox O2 Delivery O2 Flow Rate FiO2 05/18/16 07:11 36.5 76 20 128/79 94 Room Air 05/18/16 04:17 36.5 76 15 110/64 95 Room Air 05/18/16 04:00 Room Air 05/18/16 00:30 103/59 05/17/16 23:59 Room Air 05/17/16 23:48 36.7 81 18 92/56 94 Room Air 05/17/16 20:00 Room Air 05/17/16 20:00 36.9 95 22 145/76 98 Room Air 05/17/16 18:12 36.8 90 20 126/62 95 Room Air 05/17/16 18:03 Room Air 05/17/16 16:49 83 18 115/56 95 Room Air 05/17/16 16:10 84 05/17/16 15:21 84 18 102/48 93 Room Air 05/17/16 13:43 36.8 76 18 98/49 98 Room Air 24-Hour Column 05/18/16 08:00 Intake Total 1653 ml Output Total 2100 ml Balance -447 ml General Appearance: WD/WN, no apparent distress, + obese, + pertinent finding ( sitting on side of bed on RA oriented and cooperative but poor historian) Eyes: EOMI ENT: hearing grossly normal Neck: supple Respiratory/Chest: no respiratory distress, no accessory muscle use, + decreased breath sounds Cardiovascular: regular rate, rhythm, + pertinent finding (edema trace-1+ ble) Abdomen: normal bowel sounds, non tender, soft, + pertinent finding (no feliciano) Extremities: + pedal edema, + swelling (trace-1+) Neurologic/Psych: alert, normal mood/affect (poor historian), oriented x 3 Skin: no jaundice, warm/dry, + pertinent finding (red distal LLE receding from line drawn yesterday; diffuse pustules/plaques on body) Diagnostics Last 24 Hours Test 05/17/16 14:25 05/17/16 15:00 05/17/16 20:12 05/18/16 06:32 White Blood Count 10.83 K/uL 7.69 K/uL Red Blood Count 3.90 M/uL 3.69 M/uL Hemoglobin 11.8 g/dL 11.0 g/dL Hematocrit 35.1 % 33.6 % Mean Corpuscular Volume 90.0 fL 91.1 fL Mean Corpuscular Hemoglobin 30.3 pg 29.8 pg Mean Corpuscular Hemoglobin Concent 33.6 g/dl 32.7 g/dl Platelet Count 170 K/uL 137 K/uL Mean Platelet Volume 10.9 fL 10.5 fL Neutrophils (%) (Auto) 71.2 % Lymphocytes (%) (Auto) 15.3 % Monocytes (%) (Auto) 8.4 % Eosinophils (%) (Auto) 4.6 % Basophils (%) (Auto) 0.2 % Neutrophils # (Auto) 7.71 K/uL Lymphocytes # (Auto) 1.66 K/uL Monocytes # (Auto) 0.91 K/uL Eosinophils # (Auto) 0.50 K/uL Basophils # (Auto) 0.02 K/uL RDW Standard Deviation 47.4 fL 48.2 fL RDW Coefficient of Variation 14.4 % 14.4 % Immature Granulocyte % (Auto) 0.3 % Immature Granulocyte # (Auto) 0.03 K/uL Erythrocyte Sedimentation Rate 58 mm/hr Prothrombin Time 12.0 SECONDS Prothromb Time International Ratio 1.1 Sodium Level 140 mmol/L 143 mmol/L Potassium Level 4.5 mmol/L 4.7 mmol/L Chloride Level 102 mmol/L 110 mmol/L Carbon Dioxide Level 26 mmol/L 24 mmol/L Anion Gap 12.0 mmol/L 9.0 mmol/L Blood Urea Nitrogen 74 mg/dl 68 mg/dl Creatinine 3.60 mg/dl 2.70 mg/dl Est Creatinine Clear Calc Drug Dose 17.5 ml/min 23.3 ml/min Estimated GFR () 13.9 19.6 Estimated GFR (Non- 12.0 16.9 BUN/Creatinine Ratio 20.7 25.2 Random Glucose 99 mg/dl 131 mg/dl Estimated Average Glucose 143 mg/dl Hemoglobin A1c 6.6 % Calcium Level 9.1 mg/dl 8.7 mg/dl Total Bilirubin 0.4 mg/dl Direct Bilirubin 0.1 mg/dl Aspartate Amino Transf (AST/SGOT) 25 U/L Alanine Aminotransferase (ALT/SGPT) 47 U/L Alkaline Phosphatase 93 U/L C-Reactive Protein 6.52 mg/dl Total Protein 7.7 gm/dl Albumin 3.3 gm/dl Lipase 96 U/L Lactic Acid Level 1.4 mmol/L Bedside Glucose 91 mg/dl Magnesium Level 2.9 mg/dl Thyroid Stimulating Hormone (TSH) 4.030 uIu/ml Random Vancomycin Level 19.7 mcg/ml Test 05/18/16 06:46 Bedside Glucose 127 mg/dl Diagnostic Radiology: foot xr > no acute bony process venous dopplers BLE > no dvt EKG: sinus rhythm w/ 1st degree av block Assessment & Plan 70 y/o F w/ longstanding DM, CKD 3, cutaneous scleroderma, HTN, HL admitted w/ FAISAL on ckd and L diabetic foot infection. FAISAL on CKD some from bactrim and possibly prerenal as well; need more data -improving w/ holding bactrim and appropriate anti hypertensives > cont to hold these -cont NS at current dose -will eval urine for completeness -monitor vanco doses carefully and hold for level >25 -daily bmp while in house HTN -atenolol dose noted/ atypical but she appears to be tolerating; controlled even w/ holding diuretics and acei -would stop NS late today if appropriate Diabetic foot infection -per primary service Appreciate consult; will follow with you.
--- NOTE | 2016-05-18 10:16 | Pharmacy Progress Note ---
Glycemic Control Intl Consult Date of Service May 18, 2016. Scope Glycemic Pharmacist consulted by Dr Gilmore on 05/18/16 for glycemic control and to write orders per [facility] inpatient glycemic control protocol Objective Weight (Kilograms): 106.700 Accuchecks BSG (last 24hrs): Test 05/17/16 14:25 05/17/16 20:12 05/18/16 06:32 05/18/16 06:46 Random Glucose 99 mg/dl (70-99) 131 mg/dl (70-99) Bedside Glucose 91 mg/dl (70-90) 127 mg/dl (70-90) Laboratory Data (last 24hrs) Test 05/17/16 14:25 05/18/16 06:32 Anion Gap 12.0 mmol/L 9.0 mmol/L BUN/Creatinine Ratio 20.7 25.2 Blood Urea Nitrogen 74 mg/dl 68 mg/dl Creatinine 3.60 mg/dl 2.70 mg/dl Hemoglobin A1c 6.6 % Potassium Level 4.5 mmol/L 4.7 mmol/L Sodium Level 140 mmol/L 143 mmol/L White Blood Count 10.83 K/uL 7.69 K/uL Red Blood Count 3.90 M/uL Hemoglobin 11.8 g/dL Hematocrit 35.1 % Mean Corpuscular Volume 90.0 fL Mean Corpuscular Hemoglobin 30.3 pg Mean Corpuscular Hemoglobin Concent 33.6 g/dl Platelet Count 170 K/uL Mean Platelet Volume 10.9 fL Neutrophils (%) (Auto) 71.2 % Lymphocytes (%) (Auto) 15.3 % Monocytes (%) (Auto) 8.4 % Eosinophils (%) (Auto) 4.6 % Basophils (%) (Auto) 0.2 % Neutrophils # (Auto) 7.71 K/uL Lymphocytes # (Auto) 1.66 K/uL Monocytes # (Auto) 0.91 K/uL Eosinophils # (Auto) 0.50 K/uL Basophils # (Auto) 0.02 K/uL HbA1c Test 05/17/16 14:25 Hemoglobin A1c 6.6 % (4.5-5.6) H Recent Pertinent Medications Outpatient Anti-diabetic Regimen: * Lantus 50-60 units BID * Novolog 25-35 units ACHS * Metformin 500 mg PO BIDM The patient is currently receiving: * Basal insulin: Lantus 50 units every 12 hours * Correctional Insulin: Novolog Correction per scale ACHS Goal Range: Low 110 mg/dL - High 150 mg/dL Correction Factor: 20 mg/dL/unit * Prandial insulin: Per carb ratio of 1 unit per 7 grams CHO consumed * Oral Agents: metformin on hold Risk Factors for Insulin Resistance: * Infection * IVF * Diet Assessment & Plan ASSESSMENT: * 68 yo T2D F admitted with R lower extremity cellulitis, initiated on basal/ bolus regimen per provider overnight * A1c from this AM 6.6% would be indicative of well-controlled BSGs; however, given age, comorbidities, and recent hypoglycemic episodes, this is likely reflective of an over aggressive outpatient regimen * Per the med rec, patient took home doses of Novolog and Lantus [employer] * HS BSG last night 91 mg/dL and patient received 50 units of Lantus - per provider's note- plan was to decrease dose but home dose was already given * Fasting BSG this AM 127 mg/dL * Due to hypoglycemic episodes- reduce Lantus dosing --> Start with stress of 1 and total outpatient dose of ~200 units (under estimating home regimen due to hypoglycemic episodes) * Given large boluses of Novolog at home- tighten Novolog slightly * Insulin will be titrated over the next 48 hours as we better understand patient needs * ADA & AACE recommend a goal blood sugar range 140-180 mg/dl for the majority of critically ill & non-critically ill patients. However, more stringent targets may be selected in individual cases. Reduce goal range to 110-150 mg/dL to facilitate better wound healing. PLAN FOR INPATIENT GLYCEMIC CONTROL: * Hold outpatient oral diabetes medications * Basal insulin with LANTUS 35 units SQ BID * Correctional Insulin with NOVOLOG per scale ACHS or Q6hrs while NPO + 0200 check * Goal Range: Low 110 mg/dL - High 150 mg/dL * Correction Factor: 15 mg/dL/unit * Nutritional / Prandial insulin per carb ratio of 1 unit per 5 grams CHO consumed * A1c current- added to D/C instructions * Please note that the plan above was derived based on current level of insulin resistance and hospital stress. These recommendations are appropriate for inpatient admission only. Plan of care upon discharge will need to be reassessed to avoid potential outpatient hypo/hyperglycemia. Thank you.
--- NOTE | 2016-05-18 12:07 | Progress Note ---
Progress Note ID Consult dictated #[id number] A/P: 1. LLE Cellulitis 2. Leukocytosis -resolved -Continue IV abx for now, follow cultures -Elevated LLE -Likely change to po abx in next day or two if she continues to improve -No additional bactrim -Will follow, thank you
--- NOTE | 2016-05-18 12:47 | INFECT. DISEASE CONSULTATION ---
DATE OF CONSULTATION: 05/18/2016 REFERRING PHYSICIAN: Dr. Gilmore. CONSULTATION FOLLOWS: This is a 70-year-old female who was admitted on the after she had worsening left lower extremity cellulitis. She states that this began some days ago at home and she was followed at an urgent care center recently. She was placed on oral Bactrim from the urgent care center, but did not have significant improvement and subsequently presented to the Emergency Room. She does admit to subjective fevers and chills at home. She does have pain in the left lower extremity, but is able to bear weight. She states overall the pain has improved since admission to the hospital. She does have a superficial wound on the left heel and she does not know how long that has been present. She does have underlying neuropathy, but denies any known trauma to the area. She does admit to having a rash on her lower extremity and had some open ulcerations prior to this episode of cellulitis. Since admission to the hospital, she has been afebrile. She has been placed empirically on vancomycin and Cipro. She was also given clindamycin in the Emergency Room. She initially had a mild leukocytosis of 10, but this has improved. Her sed rate is elevated at 58. She did have an x-ray of the foot secondary to her longstanding ulcer, which did not show any evidence of osteomyelitis. Dopplers were also performed in the ER and were negative for DVT. Her creatinine is elevated at 2.7. It was 3.6 on admission. I do not know her baseline creatinine; however, she does have a history of chronic kidney disease. She does not have any previous laboratory studies or cultures to review in the system. She does follow with rheumatology for scleroderma, but states that prior to her being at urgent care center, she has not been on any recent antibiotics. Currently, she is out of bed to chair and she is comfortable. She denies any chest pain, cough, shortness of breath, nausea, vomiting or diarrhea. She is eating well. She is tolerating antibiotics. She has no urinary complaints. Her only complaint this morning is pain in the left lower extremity which overall has improved since admission. PAST MEDICAL HISTORY: Significant for type 2 diabetes, hypertension, scleroderma, psoriasis, chronic kidney disease. FAMILY HISTORY: Unremarkable. SOCIAL HISTORY: Negative for history of tobacco use. She denies any alcohol or drug use. She is and lives with her . ALLERGIES: SHE HAS ALLERGIES TO PENICILLIN, KEFLEX, GATIFLOXACIN AND OXYCODONE. CURRENT MEDICATIONS: Include allopurinol, Cymbalta, Lantus, methimazole, vancomycin, ciprofloxacin, Elavil, Ecotrin, atenolol, Lipitor, baclofen, Zetia, fish oil, Flonase, multivitamins, clobetasol, nystatin. PHYSICAL EXAMINATION: VITAL SIGNS: She is afebrile since admission, pulse 76, respiratory rate 20, blood pressure 107/51, oxygen saturation 94% to 96% on room air. GENERAL: She is awake, alert and oriented x3. She is in no acute distress. HEENT: Mucous membranes are moist. HEART: Regular. LUNGS: Clear. ABDOMEN: Soft, nontender, nondistended. EXTREMITIES: There is no lower extremity edema. Examination of the left lower extremity reveals significant warmth, edema and weeping to the mid-calf area. This is decreased from the line drawn in the Emergency Room. There is a superficial ulcer of the heel. She does have neuropathy. LABORATORY STUDIES: CBC today reveals a white blood cell count of 7.6, down from 10.8 in the ER, hemoglobin 11, hematocrit 33.6 and platelets are 137. Sed rate is elevated at 58. Chemistry panel reveals a sodium of 143, potassium 4.7, chloride 110, bicarbonate 24, creatinine 2.7, glucose is 185. LFTs are within normal limits. CRP is 6.5. A random vancomycin level today is 19.7. Blood cultures are pending. IMAGING: As reviewed previously. ASSESSMENT AND PLAN: 1. Left lower extremity cellulitis. 2. Leukocytosis, resolved. At this time, she will remain on broad-spectrum antibiotics. I suspect that her increased creatinine is likely secondary to Bactrim therapy as an outpatient. This will not be restarted. Hopefully, she will have improvement in the next 1-2 days and she can be transitioned to oral antibiotics for discharge. We will follow along with you. Thank you for this consultation. BRITTANY
[2016-05-18 13:23] LABS: URINE APPEARANCE CLEAR (CLEAR); URINE BILIRUBIN NEG (NEG); URINE COLOR YELLOW; URINE EPITHELIAL CELL AUTO 0-5 /lpf (0-5); URINE NITRITE NEG (NEG); URINE PH 6.5 (4.5-7.5); URINE SPECIFIC GRAVITY 1.011 (1.000-1.030); UROBILINOGEN NEG (NEG); ZZUR CULT IF INDIC CLEAN CATCH NO
[2016-05-18 13:24] LABS: MANUAL MICROSCOPIC REQUIRED? NO; REVIEW REQ? NO
--- NOTE | 2016-05-18 13:40 | Progress Note ---
Medicine Progress Note Date & Time of Visit: May 18, 2016 at 13:13. Subjective 70 yoF with DMII and CAD presented with L foot wound on heel and cellulitis on LLE yesterday. The redness began reportedly 5 days ago, and she denies seeing any providers for this issue. She came in on Doxycycline and Bactrim as outpatient, but states she doesn't know what she takes and doesn't pay attention to why she takes them. She is without fevers and chills, denies nausea, vomiting, or diarrhea, denies chest pain or shortness of breath. ID was consulted and feels IV abx are needed for the next 1-2 days. Nephro was consulted and agrees with holding antihypertensives and avoiding Bactrim. Reviewed [facility] outpatient records and I don't see Bactrim on her med list in several appointments. It doesn't appear she has been on it recently, and the patient doesn't know what she is taking. She did see FP (Dr. Diaz) on 04/29 who put her on a 10 day course of doxycycline with a prednisone taper to treat a presumed cellulitis on her arm. She was sent to her [place] tube maker the next day who took a biopsy of the area and recommended continuing on that course. She was then seen by her [facility] Scalder on 05/13 who did not prescribe any new medications and recommended a video swallow study to be performed in the setting of scleroderma with worsened dysphagia. Bactrim was not noted on the medication list for any of these recent appointments and the patient states she doesn't pay attention to what she is taking. Objective Last 8 Hrs Date Time Temp Pulse Resp B/P Pulse Ox O2 Delivery O2 Flow Rate FiO2 05/18/16 10:54 36.7 76 20 107/51 96 Room Air 05/18/16 08:00 Room Air 05/18/16 07:11 36.5 76 20 128/79 94 Room Air Physical Exam: GEN: WNWD, in no acute distress, alert and appropriate, sitting in bedside chair , able to stand up on her own. HEENT: NC/AT, normal sclerae, exopthalmos noted CARDIO: reg rate, S1/2 heard without m/g/r LUNGS: CTA bilaterally, no crackles, rales or wheezes, good diaphragmatic excursion ABD: soft, non-tender, non-distended, no rebound or guarding EXTREMITY: trace LLE swelling, no edema, extremities are warm and well-perfused , LLE has an area or erythema from her ankle proximally which doesn't extend beyond her knee. She does have a small superficial wound on her heel. NEURO: CN 2-12 grossly intact, sensation intact throughout MUSC: well-developed musculature, no gross focal deficits SKIN: warm and dry, multiple psoriatic plaques throughout, L wrist is wrapped and dressing is c/d/i, LLE as above. Laboratory Results: Last 24 Hours Test 05/17/16 14:25 05/17/16 15:00 05/17/16 20:12 05/18/16 06:32 White Blood Count 10.83 K/uL 7.69 K/uL Red Blood Count 3.90 M/uL 3.69 M/uL Hemoglobin 11.8 g/dL 11.0 g/dL Hematocrit 35.1 % 33.6 % Mean Corpuscular Volume 90.0 fL 91.1 fL Mean Corpuscular Hemoglobin 30.3 pg 29.8 pg Mean Corpuscular Hemoglobin Concent 33.6 g/dl 32.7 g/dl Platelet Count 170 K/uL 137 K/uL Mean Platelet Volume 10.9 fL 10.5 fL Neutrophils (%) (Auto) 71.2 % Lymphocytes (%) (Auto) 15.3 % Monocytes (%) (Auto) 8.4 % Eosinophils (%) (Auto) 4.6 % Basophils (%) (Auto) 0.2 % Neutrophils # (Auto) 7.71 K/uL Lymphocytes # (Auto) 1.66 K/uL Monocytes # (Auto) 0.91 K/uL Eosinophils # (Auto) 0.50 K/uL Basophils # (Auto) 0.02 K/uL RDW Standard Deviation 47.4 fL 48.2 fL RDW Coefficient of Variation 14.4 % 14.4 % Immature Granulocyte % (Auto) 0.3 % Immature Granulocyte # (Auto) 0.03 K/uL Erythrocyte Sedimentation Rate 58 mm/hr Prothrombin Time 12.0 SECONDS Prothromb Time International Ratio 1.1 Sodium Level 140 mmol/L 143 mmol/L Potassium Level 4.5 mmol/L 4.7 mmol/L Chloride Level 102 mmol/L 110 mmol/L Carbon Dioxide Level 26 mmol/L 24 mmol/L Anion Gap 12.0 mmol/L 9.0 mmol/L Blood Urea Nitrogen 74 mg/dl 68 mg/dl Creatinine 3.60 mg/dl 2.70 mg/dl Est Creatinine Clear Calc Drug Dose 17.5 ml/min 23.3 ml/min Estimated GFR () 13.9 19.6 Estimated GFR (Non- 12.0 16.9 BUN/Creatinine Ratio 20.7 25.2 Random Glucose 99 mg/dl 131 mg/dl Estimated Average Glucose 143 mg/dl Hemoglobin A1c 6.6 % Calcium Level 9.1 mg/dl 8.7 mg/dl Total Bilirubin 0.4 mg/dl Direct Bilirubin 0.1 mg/dl Aspartate Amino Transf (AST/SGOT) 25 U/L Alanine Aminotransferase (ALT/SGPT) 47 U/L Alkaline Phosphatase 93 U/L C-Reactive Protein 6.52 mg/dl Total Protein 7.7 gm/dl Albumin 3.3 gm/dl Lipase 96 U/L Lactic Acid Level 1.4 mmol/L Bedside Glucose 91 mg/dl Magnesium Level 2.9 mg/dl Thyroid Stimulating Hormone (TSH) 4.030 uIu/ml Random Vancomycin Level 19.7 mcg/ml Test 05/18/16 06:46 05/18/16 11:33 05/18/16 12:55 Bedside Glucose 127 mg/dl 185 mg/dl Date/Time Source Procedure Growth Status 05/17/16 15:00 Blood Blood Culture Pending Received 05/17/16 14:25 Blood Blood Culture Pending Received 05/17/16 21:15 Nasal MRSA DNA Surveillance Screen - Final Specimen Negative for MRSA by DNA Probe Complete Assessment & Plan LEFT LOWER EXTREMITY CELLULITIS : -no evidence of sepsis -mild leukocytosis, normal lactic acid -lower ext Doppler-negative -blood culture ordered and pending -empiric Abx with vancomycin/Cipro L HEEL WOUND: likely pressure ulceration in setting of diabetes-Stag II FAISAL ON CKD STAGE 3: presents with Cr 3.6-->reduced to 2.70 this morning thought 2/2 Bactrim, however, has not appeared to be on that for last couple of weeks Pt is a very poor historian, however, and doesn't know what she takes at home Baseline creat is 1.4 IV Hydration-will continue this now Hold home diuretics -Lasix , HCTZ , ACEI follow PRP Nephrology consulted who agrees with current plan. SCLERODERMA/PSORIASIS : follows with Rheumatology and Dermatology will change Diet to mechanical soft diet -new complaint of mild difficulty with swallowing. Speech path consult placed--video swallow was recently recommended as outpatient Pt with multiple plaques, on Acitretin at home. Will add to the med rec and continue now. HTN : BP stable cont Atenolol 100 mg PO BID hold diuretics Due to FAISAL will hold Norvasc -will cause worsening of lower ext edema /fluid retention TYPE 2 DM: pt reports of episodes of hypoglycemia, A1C 6.3 Lantus dose reduced to 30 U BID, ISS pharmacy consulted for glycemic management FULL CODE DVT PROPHYLAX : moderate to high risk Sub q heparin Lower ext Doppler ordered to R/O DVT DISPOSITION : expected to return to home when medically stable will benefit form Home Health visiting nurse to assess improvement of cellulitis of lower ext Social service consulted Dr West will continue to follow the patient form tomorrow Consultants: Nephro, ID Current Inpatient Medications: Current Inpatient Medications Medications (Trade) Dose Ordered Sig/Brodie Route Start Time Stop Time Status Last Admin Dose Admin Sodium Chloride 1,000 ml @ 100 mls/hr Q10H IV 05/17/16 15:45 06/16/16 15:44 05/18/16 08:14 100 MLS/HR Ciprofloxacin/ Dextrose/Prmx (Cipro / D5w/ Premixed D5W) 200 ml @ 100 mls/hr Q24H IV 05/17/16 21:00 05/27/16 20:59 05/18/16 00:25 100 MLS/HR Allopurinol (Zyloprim Tab) 100 mg DAILY PO 05/18/16 09:00 06/17/16 08:59 05/18/16 08:05 100 MG Amitriptyline HCl (Elavil Tab) 100 mg HS PO 05/17/16 21:00 06/16/16 20:59 05/17/16 20:56 100 MG Aspirin (Ecotrin Tab) 81 mg QPM PO 05/17/16 21:00 06/16/16 20:59 05/17/16 20:58 81 MG Atenolol (Tenormin Tab) 100 mg BID PO 05/17/16 21:00 06/16/16 20:59 05/18/16 08:06 100 MG Atorvastatin Calcium (Lipitor Tab) 20 mg QPM PO 05/17/16 21:00 06/16/16 20:59 05/17/16 20:56 20 MG Baclofen (Lioresal Tab) 10 mg BID PO 05/17/16 21:00 06/16/16 20:59 05/18/16 08:06 10 MG Duloxetine HCl (Cymbalta Cap) 60 mg DAILY PO 05/18/16 09:00 06/17/16 08:59 05/18/16 08:06 60 MG EZETIMIBE (Zetia Tab) 10 mg QPM PO 05/17/16 21:00 06/16/16 20:59 05/17/16 20:57 10 MG Fish Oil ([place]-3 (Purified Fish Oil) Cap) 1 gm BID PO 05/17/16 21:00 06/16/16 20:59 05/18/16 08:05 1 GM Fluticasone Propionate (Flonase Nasal [place]) 1 sprays HS AN 05/17/16 21:00 06/16/16 20:59 05/17/16 21:03 1 SPRAYS Multivitamins (Multivitamin Tab) 1 tab QPM PO 05/17/16 21:00 06/16/16 20:59 05/17/16 20:57 1 TAB Clobetasol Propionate (Clobetasol Propionate Oint) 1 appln BID EXT 05/17/16 21:00 06/16/16 20:59 05/18/16 08:07 1 APPLN Miscellaneous Information (Order Awaiting Action) 1 ea QS N/A 05/18/16 00:00 06/17/16 00:00 Methimazole (Methimazole Tab) 10 mg QAM PO 05/18/16 09:00 06/17/16 08:59 05/18/16 08:06 10 MG Nystatin (Mycostatin Powder) 1 appln TID EXT 05/17/16 21:00 06/16/16 20:59 05/17/16 20:55 1 APPLN Glucose (Glucose 40% Gel) 15-30 GRAMS 15 GRAMS... UD PRN PO 05/17/16 19:45 06/16/16 19:44 Glucose (Glucose Chew Tab) 4-8 Tablets 4 Tabl... UD PRN PO 05/17/16 19:45 06/16/16 19:44 Dextrose (Dextrose 50% 50ML Syringe) 25-50ML OF 50% DW IV FOR... UD PRN IV 05/17/16 19:45 06/16/16 19:44 Glucagon (Glucagon Inj) 1 mg UD PRN SQ 05/17/16 19:45 06/16/16 19:44 Miscellaneous Information (Consult Glycemic Management Pharmacy) 1 ea DAILY PRN N/A 05/17/16 19:47 06/16/16 19:46 Ciprofloxacin (Consult) 1 ea UD PRN N/A 05/17/16 20:45 06/16/16 20:44 Insulin Aspart (novoLOG ASPART) SLIDING SCALE ACHS SC 05/17/16 21:00 06/16/16 20:59 05/18/16 11:51 10 UNITS Insulin Glargine 35 unit 35 unit BID SC 05/18/16 09:00 06/17/16 08:59 05/18/16 08:09 35 UNIT Vancomycin HCl/ Sodium Chloride (Vancomycin Inj/ Nss 500ml) 532 ml @ 200 mls/hr TODAY@0830 IV 05/18/16 08:30 05/18/16 11:10 05/18/16 09:35 200 MLS/HR Vancomycin HCl (Consult) 1 ea UD PRN N/A 05/18/16 08:30 06/17/16 08:29
[2016-05-18] MEDS ORDERED: ACIT1CAP PO (13:42)
[2016-05-18] MEDS: ASPIRIN 81 MG ECTAB PO SCH (20:54)
[2016-05-18] MEDS: ATORVASTATIN 20 MG TAB PO SCH (20:54)
[2016-05-18] MEDS: FLUTICASONE PROPIONATE NA SPR 16 GM BTL NAE SCH (20:55)
[2016-05-18] MEDS: EZETIMIBE 10MG TAB PO SCH (20:55)
[2016-05-18] MEDS: MULTIVITAMIN TAB PO SCH (20:55)
[2016-05-18] MEDS: AMITRIPTYLINE HCL 100 MG TAB PO SCH (20:55)
[2016-05-19] VITALS (7 sets, daily range): BP systolic 133–172; BP diastolic 76–84; PULSE 73–88; TEMP 36.2–36.7; O2SAT 94–98
[2016-05-19 07:25] LABS: HEMATOCRIT 36.2 % (37-47); MEAN CELL VOLUME 91.9 fL (80-100); MEAN CORPUSCULAR HEMOGLOBIN 29.9 pg (25-34); MEAN CORPUSCULAR HGB CONC 32.6 g/dl (32-36); MEAN PLATELET VOLUME 10.1 fL (7.4-10.4); PLATELET COUNT 133 K/uL (130-400); RED BLOOD COUNT 3.94 M/uL (4.2-5.4); WHITE BLOOD COUNT 8.47 K/uL (4.8-10.8)
[2016-05-19 07:41] LABS: BUN/CREATININE RATIO 27.2 (10-20); CALCIUM 8.9 mg/dl (8.5-10.1); MAGNESIUM 2.8 mg/dl (1.8-2.4); POTASSIUM 5.1 mmol/L (3.5-5.1)
[2016-05-19] MEDS: OMEGA-3 (PURIFIED FISH OIL) 1 GM CAP PO SCH ×2 (09:15→21:23)
[2016-05-19] MEDS: BACLOFEN 10 MG TAB PO SCH ×2 (09:15→21:23)
[2016-05-19] MEDS: DULOXETINE HCL 60 MG CAP PO SCH (09:16)
[2016-05-19] MEDS: METHIMAZOLE 5 MG TAB PO SCH (09:16)
[2016-05-19] MEDS: ALLOPURINOL 100 MG TAB PO SCH (09:17)
[2016-05-19] MEDS: CLOBETASOL PROPIONATE 0.05% OINT 15 GM TUBE EXT SCH ×2 (09:18→21:20)
[2016-05-19] MEDS: NYSTATIN POWDER 15GM BTL EXT SCH ×3 (09:18→21:20)
[2016-05-19] MEDS: SODIUM CHLORIDE 0.9% 1000ML 1,000 ML IV SCH (09:22)
[2016-05-19] MEDS: INSULIN ASPART 100 UNITS/ML 3 ML PEN SC SCH ×4 (09:30→21:26)
[2016-05-19] MEDS: INSULIN GLARGINE SOLOSTAR 100 UNITS/ML 3 ML PEN SC SCH ×2 (09:31→21:37)
--- NOTE | 2016-05-19 13:21 | Clinical Documentation Query ---
ANGELITO Smith : CLINICAL DOCUMENTATION QUERY Patient is a 70 year old female admitted with "right lower extremity cellulitis" and FAISAL on CKD stage 3. ED provider documentation includes "cellulitis of left lower extremity". All lower extremity radiology was performed on the left side. Please clarify laterality discrepancy as clinically appropriate. Additionally, triage documentation includes "pt here with redness, swelling, drainage to ulcerated area". Admission RN noted a stage 2 ulcer of the left heel. Please clarify the (likely/suspected/probable) etiology as appropriate and include POA status as this otherwise is considered a hospital acquired condition .Thank you. In your clinical opinion is this patient being managed for: ( ) Left heel diabetic ulcer, POA ( ) Left heel pressure ulcer, stage ____ in the setting of type 2 diabetes, POA ( ) Right heel diabetic ulcer, POA ( ) RIght heel pressure ulcer, stage ____ in the setting of type 2 diabetes, POA ( ) Other explanation of clinical findings (Please Explain) ( ) Unable to determine (Please Define) ( ) Need to Discuss ( ) Not Agree The medical record reflects the following clinical findings, treatment, and risk factors. Clinical Indicators: As above Treatment: IV antibiotics, serial labs, telemetry Risk Factors: Age, diabetes, obesity Please clarify and document your clinical opinion in the progress notes and discharge summary. Terms such as "probable", "suspected", "likely", "questionable", "possible", or "still to be ruled out" are acceptable. IF IN AGREEMENT, YOU MUST DOCUMENT ABOVE DIAGNOSTIC STATEMENT IN DAILY PROGRESS NOTES AND DISCHARGE SUMMARY. This document is not part of the patient's record. Thank You, Des Davis, SHERWIN [phone]
--- NOTE | 2016-05-19 14:24 | Nephrology Progress Note ---
Nephrology Progress Note Date of Service: May 19, 2016. Subjective seen on rounds this am 0900; no complaints except edema RUE/ forearm and proximal L mid thigh; no n/v or issues voiding; no LLE pain; not dyspneic Objective Date Time Temp Pulse Resp B/P Pulse Ox O2 Delivery O2 Flow Rate FiO2 05/19/16 09:10 98 Room Air 05/19/16 09:08 36.2 88 18 133/84 98 Room Air 05/19/16 08:00 97 Room Air 05/19/16 00:03 36.3 80 20 144/76 94 Room Air 05/19/16 00:00 Room Air 05/18/16 21:18 69 134/65 05/18/16 16:12 36.4 72 18 131/72 97 Room Air 05/18/16 15:45 97 Room Air Physical Exam: General Appearance: WD/WN, no apparent distress, + obese, + pertinent finding ( sitting up in chair on RA oriented and cooperative) Eyes: EOMI ENT: hearing grossly normal Neck: supple Respiratory/Chest: no respiratory distress, no accessory muscle use, + decreased breath sounds Cardiovascular: regular rate, rhythm, + pertinent finding (edema trace ble) and R forearm a bit swollen Abdomen: normal bowel sounds, non tender, soft, + pertinent finding (no feliciano) Extremities: + pedal edema, + swelling (trace) Neurologic/Psych: alert, normal mood/affect (poor historian), oriented x 3 Skin: no jaundice, warm/dry, + pertinent finding (red distal LLE fruther receding from line drawn yesterday) Current Inpatient Medications Medications (Trade) Dose Ordered Sig/Brodie Route Start Time Stop Time Status Last Admin Dose Admin Sodium Chloride 1,000 ml @ 100 mls/hr Q10H IV 05/17/16 15:45 06/16/16 15:44 05/19/16 09:22 100 MLS/HR Ciprofloxacin/ Dextrose/Prmx (Cipro / D5w/ Premixed D5W) 200 ml @ 100 mls/hr Q24H IV 05/17/16 21:00 05/27/16 20:59 05/18/16 20:52 100 MLS/HR Allopurinol (Zyloprim Tab) 100 mg DAILY PO 05/18/16 09:00 06/17/16 08:59 05/19/16 09:17 100 MG Amitriptyline HCl (Elavil Tab) 100 mg HS PO 05/17/16 21:00 06/16/16 20:59 05/18/16 20:55 100 MG Aspirin (Ecotrin Tab) 81 mg QPM PO 05/17/16 21:00 06/16/16 20:59 05/18/16 20:54 81 MG Atenolol (Tenormin Tab) 100 mg BID PO 05/17/16 21:00 06/16/16 20:59 05/19/16 09:17 100 MG Atorvastatin Calcium (Lipitor Tab) 20 mg QPM PO 05/17/16 21:00 06/16/16 20:59 05/18/16 20:54 20 MG Baclofen (Lioresal Tab) 10 mg BID PO 05/17/16 21:00 06/16/16 20:59 05/19/16 09:15 10 MG Duloxetine HCl (Cymbalta Cap) 60 mg DAILY PO 05/18/16 09:00 06/17/16 08:59 05/19/16 09:16 60 MG EZETIMIBE (Zetia Tab) 10 mg QPM PO 05/17/16 21:00 06/16/16 20:59 05/18/16 20:55 10 MG Fish Oil ([place]-3 (Purified Fish Oil) Cap) 1 gm BID PO 05/17/16 21:00 06/16/16 20:59 05/19/16 09:15 1 GM Fluticasone Propionate (Flonase Nasal [place]) 1 sprays HS AN 05/17/16 21:00 06/16/16 20:59 05/18/16 20:55 1 SPRAYS Multivitamins (Multivitamin Tab) 1 tab QPM PO 05/17/16 21:00 06/16/16 20:59 05/18/16 20:55 1 TAB Clobetasol Propionate (Clobetasol Propionate Oint) 1 appln BID EXT 05/17/16 21:00 06/16/16 20:59 05/19/16 09:18 1 APPLN Miscellaneous Information (Order Awaiting Action) 1 ea QS N/A 05/18/16 00:00 06/17/16 00:00 Methimazole (Methimazole Tab) 10 mg QAM PO 05/18/16 09:00 06/17/16 08:59 05/19/16 09:16 10 MG Nystatin (Mycostatin Powder) 1 appln TID EXT 05/17/16 21:00 06/16/16 20:59 05/19/16 09:18 1 APPLN Glucose (Glucose 40% Gel) 15-30 GRAMS 15 GRAMS... UD PRN PO 05/17/16 19:45 06/16/16 19:44 Glucose (Glucose Chew Tab) 4-8 Tablets 4 Tabl... UD PRN PO 05/17/16 19:45 06/16/16 19:44 Dextrose (Dextrose 50% 50ML Syringe) 25-50ML OF 50% DW IV FOR... UD PRN IV 05/17/16 19:45 06/16/16 19:44 Glucagon (Glucagon Inj) 1 mg UD PRN SQ 05/17/16 19:45 06/16/16 19:44 Miscellaneous Information (Consult Glycemic Management Pharmacy) 1 ea DAILY PRN N/A 05/17/16 19:47 06/16/16 19:46 Ciprofloxacin (Consult) 1 ea UD PRN N/A 05/17/16 20:45 06/16/16 20:44 Insulin Aspart (novoLOG ASPART) SLIDING SCALE ACHS SC 05/17/16 21:00 06/16/16 20:59 05/19/16 13:18 11 UNITS Insulin Glargine (Lantus Solostar Pen) 35 unit BID SC 05/18/16 09:00 06/17/16 08:59 05/19/16 09:31 35 UNIT Miscellaneous Information (Order Awaiting Action) 1 ea QS N/A 05/18/16 16:00 06/17/16 15:59 Last 24 Hours Test 05/18/16 16:29 05/18/16 19:46 05/19/16 06:50 05/19/16 07:25 Bedside Glucose 87 mg/dl 113 mg/dl 102 mg/dl White Blood Count 8.47 K/uL Red Blood Count 3.94 M/uL Hemoglobin 11.8 g/dL Hematocrit 36.2 % Mean Corpuscular Volume 91.9 fL Mean Corpuscular Hemoglobin 29.9 pg Mean Corpuscular Hemoglobin Concent 32.6 g/dl RDW Standard Deviation 48.4 fL RDW Coefficient of Variation 14.4 % Platelet Count 133 K/uL Mean Platelet Volume 10.1 fL Sodium Level 145 mmol/L Potassium Level 5.1 mmol/L Chloride Level 113 mmol/L Carbon Dioxide Level 24 mmol/L Anion Gap 8.0 mmol/L Blood Urea Nitrogen 54 mg/dl Creatinine 2.00 mg/dl Est Creatinine Clear Calc Drug Dose 31.4 ml/min Estimated GFR () 28.2 Estimated GFR (Non- 24.3 BUN/Creatinine Ratio 27.2 Random Glucose 108 mg/dl Calcium Level 8.9 mg/dl Magnesium Level 2.8 mg/dl Test 05/19/16 11:36 Bedside Glucose 225 mg/dl Assessment & Plan 70 y/o F w/ longstanding DM, CKD 3, cutaneous scleroderma, HTN, HL admitted w/ FAISAL on ckd and L diabetic foot infection. FAISAL on CKD some from bactrim and possibly prerenal as well w/ continued improvement. urine sediment bland; no infection -improving w/ holding bactrim and appropriate anti hypertensives > cont to hold these -changed NS to 1/2 NS at 75 mL hourly -monitor vanco doses carefully and hold for level >25 -daily bmp while in house HTN -atenolol dose noted/ atypical but she appears to be tolerating; controlled even w/ holding diuretics and acei -ivf change as above Diabetic foot infection -per primary service Appreciate consult; will follow with you.
[2016-05-19] MEDS: SODIUM CHLORIDE 0.45% 1000ML 1,000 ML IV SCH (16:17)
--- NOTE | 2016-05-19 18:58 | Progress Note ---
Medicine Progress Note Date & Time of Visit: May 19, 2016 at 18:46. Subjective Pt was seen and examined Pt sitting in chair very comfortable with no distress pt said that she feels fine she said that the redness and swelling seems to improved she denies any chest pain, palpitation, dizziness and SOB. Objective Last 8 Hrs Date Time Temp Pulse Resp B/P Pulse Ox O2 Delivery O2 Flow Rate FiO2 05/19/16 16:00 97 Room Air 05/19/16 14:47 36.7 73 20 133/80 97 Room Air Physical Exam: General- obese, no acute distress Head- atraumatic Eyes- PERRL, EOMI ENT- oropharynx clear Neck- supple, no JVD Lungs- clear to auscultation and percussion Heart- regular rhythm; no murmur Abdomen- normal bowel sounds, soft Extremities- no calf tenderness, LLE swelling and redness Neuro- alert, oriented x 3; PERRL, EOMI; no facial palsy Skin- warm & dry Laboratory Results: Last 24 Hours Test 05/18/16 19:46 05/19/16 06:50 05/19/16 07:25 05/19/16 11:36 Bedside Glucose 113 mg/dl 102 mg/dl 225 mg/dl White Blood Count 8.47 K/uL Red Blood Count 3.94 M/uL Hemoglobin 11.8 g/dL Hematocrit 36.2 % Mean Corpuscular Volume 91.9 fL Mean Corpuscular Hemoglobin 29.9 pg Mean Corpuscular Hemoglobin Concent 32.6 g/dl RDW Standard Deviation 48.4 fL RDW Coefficient of Variation 14.4 % Platelet Count 133 K/uL Mean Platelet Volume 10.1 fL Sodium Level 145 mmol/L Potassium Level 5.1 mmol/L Chloride Level 113 mmol/L Carbon Dioxide Level 24 mmol/L Anion Gap 8.0 mmol/L Blood Urea Nitrogen 54 mg/dl Creatinine 2.00 mg/dl Est Creatinine Clear Calc Drug Dose 31.4 ml/min Estimated GFR () 28.2 Estimated GFR (Non- 24.3 BUN/Creatinine Ratio 27.2 Random Glucose 108 mg/dl Calcium Level 8.9 mg/dl Magnesium Level 2.8 mg/dl Test 05/19/16 16:34 Bedside Glucose 118 mg/dl Assessment & Plan LEFT LOWER EXTREMITY CELLULITIS : -lower ext Doppler-negative -Afebrile, No WBC -blood culture no growth as of now -Continue empiric Abx with vancomycin/Cipro - Improved FAISAL ON CKD STAGE 3: presents with Cr 3.6-->reduced to 2.0 this morning possible related to Bactrim Baseline creat is 1.4 continue IVF Hold home diuretics -Lasix , HCTZ , ACEI Continue monitor BMP SCLERODERMA/PSORIASIS : follows with Rheumatology and Dermatology will change Diet to mechanical soft diet - DYSPHAGIA Speech therapy consulted. Pt refused to participate in swallowing assessment No recommendations at this time. Pt understands the risk for aspiration HTN : BP stable cont Atenolol 100 mg PO BID hold diuretics Due to FAISAL Stable TYPE 2 DM: pt reports of episodes of hypoglycemia, A1C 6.3 Lantus dose reduced to 30 U BID, ISS pharmacy consulted for glycemic management FULL CODE DVT PROPHYLAX : moderate to high risk Sub q heparin starting Lower ext Doppler ordered to R/O DVT DISPOSITION : expected to return to home when medically stable will benefit form Home Health visiting nurse to assess improvement of cellulitis of lower ext Social service consulted Consultants: Nephro, ID Current Inpatient Medications: Current Inpatient Medications Medications (Trade) Dose Ordered Sig/Brodie Route Start Time Stop Time Status Last Admin Dose Admin Ciprofloxacin/ Dextrose/Prmx (Cipro / D5w/ Premixed D5W) 200 ml @ 100 mls/hr Q24H IV 05/17/16 21:00 05/27/16 20:59 05/18/16 20:52 100 MLS/HR Allopurinol (Zyloprim Tab) 100 mg DAILY PO 05/18/16 09:00 06/17/16 08:59 05/19/16 09:17 100 MG Amitriptyline HCl (Elavil Tab) 100 mg HS PO 05/17/16 21:00 06/16/16 20:59 05/18/16 20:55 100 MG Aspirin (Ecotrin Tab) 81 mg QPM PO 05/17/16 21:00 06/16/16 20:59 05/18/16 20:54 81 MG Atenolol (Tenormin Tab) 100 mg BID PO 05/17/16 21:00 06/16/16 20:59 05/19/16 09:17 100 MG Atorvastatin Calcium (Lipitor Tab) 20 mg QPM PO 05/17/16 21:00 06/16/16 20:59 05/18/16 20:54 20 MG Baclofen (Lioresal Tab) 10 mg BID PO 05/17/16 21:00 06/16/16 20:59 05/19/16 09:15 10 MG Duloxetine HCl (Cymbalta Cap) 60 mg DAILY PO 05/18/16 09:00 06/17/16 08:59 05/19/16 09:16 60 MG EZETIMIBE (Zetia Tab) 10 mg QPM PO 05/17/16 21:00 06/16/16 20:59 05/18/16 20:55 10 MG Fish Oil ([place]-3 (Purified Fish Oil) Cap) 1 gm BID PO 05/17/16 21:00 06/16/16 20:59 05/19/16 09:15 1 GM Fluticasone Propionate (Flonase Nasal [place]) 1 sprays HS AN 05/17/16 21:00 06/16/16 20:59 05/18/16 20:55 1 SPRAYS Multivitamins (Multivitamin Tab) 1 tab QPM PO 05/17/16 21:00 06/16/16 20:59 05/18/16 20:55 1 TAB Clobetasol Propionate (Clobetasol Propionate Oint) 1 appln BID EXT 05/17/16 21:00 06/16/16 20:59 05/19/16 09:18 1 APPLN Miscellaneous Information (Order Awaiting Action) 1 ea QS N/A 05/18/16 00:00 06/17/16 00:00 Methimazole (Methimazole Tab) 10 mg QAM PO 05/18/16 09:00 06/17/16 08:59 05/19/16 09:16 10 MG Nystatin (Mycostatin Powder) 1 appln TID EXT 05/17/16 21:00 06/16/16 20:59 05/19/16 14:34 1 APPLN Glucose (Glucose 40% Gel) 15-30 GRAMS 15 GRAMS... UD PRN PO 05/17/16 19:45 06/16/16 19:44 Glucose (Glucose Chew Tab) 4-8 Tablets 4 Tabl... UD PRN PO 05/17/16 19:45 06/16/16 19:44 Dextrose (Dextrose 50% 50ML Syringe) 25-50ML OF 50% DW IV FOR... UD PRN IV 05/17/16 19:45 06/16/16 19:44 Glucagon (Glucagon Inj) 1 mg UD PRN SQ 05/17/16 19:45 06/16/16 19:44 Miscellaneous Information (Consult Glycemic Management Pharmacy) 1 ea DAILY PRN N/A 05/17/16 19:47 06/16/16 19:46 Ciprofloxacin (Consult) 1 ea UD PRN N/A 05/17/16 20:45 06/16/16 20:44 Insulin Aspart (novoLOG ASPART) SLIDING SCALE ACHS SC 05/17/16 21:00 06/16/16 20:59 05/19/16 18:00 8 UNITS Insulin Glargine (Lantus Solostar Pen) 35 unit BID SC 05/18/16 09:00 06/17/16 08:59 05/19/16 09:31 35 UNIT Miscellaneous Information 1 ea 1 ea QS N/A 05/18/16 16:00 06/17/16 15:59 Sodium Chloride (1/2 Nss 1000ml) 1,000 ml @ 75 mls/hr [id number] IV 05/19/16 14:30 06/18/16 14:29 05/19/16 16:17 75 MLS/HR
[2016-05-19] MEDS: CIPROFLOXACIN / D5W 400 MG in PREMIXED IN D5W 200 ML IV SCH (21:24)
[2016-05-19] MEDS: ASPIRIN 81 MG ECTAB PO SCH (21:25)
[2016-05-19] MEDS: MULTIVITAMIN TAB PO SCH (21:25)
[2016-05-19] MEDS: ATORVASTATIN 20 MG TAB PO SCH (21:25)
[2016-05-19] MEDS: EZETIMIBE 10MG TAB PO SCH (21:25)
[2016-05-19] MEDS: FLUTICASONE PROPIONATE NA SPR 16 GM BTL NAE SCH (21:26)
[2016-05-19] MEDS: AMITRIPTYLINE HCL 100 MG TAB PO SCH (21:26)
[2016-05-19] MEDS: HEPARIN SOD 5000 UNIT/0.5 ML CARP SQ SCH (21:38)
[2016-05-20] VITALS (7 sets, daily range): BP systolic 143–168; BP diastolic 63–74; PULSE 57–81; TEMP 36.6–36.7; O2SAT 96–98
[2016-05-20] MEDS: SODIUM CHLORIDE 0.45% 1000ML 1,000 ML IV SCH ×2 (04:30→17:59)
[2016-05-20] MEDS: HEPARIN SOD 5000 UNIT/0.5 ML CARP SQ SCH ×3 (05:33→21:24)
[2016-05-20 08:25] LABS: HEMATOCRIT 34.3 % (37-47); MEAN CELL VOLUME 91.7 fL (80-100); MEAN CORPUSCULAR HEMOGLOBIN 29.7 pg (25-34); MEAN CORPUSCULAR HGB CONC 32.4 g/dl (32-36); MEAN PLATELET VOLUME 9.9 fL (7.4-10.4); PLATELET COUNT 131 K/uL (130-400); RED BLOOD COUNT 3.74 M/uL (4.2-5.4); WHITE BLOOD COUNT 7.03 K/uL (4.8-10.8)
[2016-05-20] MEDS: OMEGA-3 (PURIFIED FISH OIL) 1 GM CAP PO SCH ×2 (08:42→21:12)
[2016-05-20] MEDS: BACLOFEN 10 MG TAB PO SCH ×2 (08:42→21:12)
[2016-05-20] MEDS: ALLOPURINOL 100 MG TAB PO SCH (08:43)
[2016-05-20] MEDS: METHIMAZOLE 5 MG TAB PO SCH (08:43)
[2016-05-20] MEDS: DULOXETINE HCL 60 MG CAP PO SCH (08:43)
[2016-05-20] MEDS: CLOBETASOL PROPIONATE 0.05% OINT 15 GM TUBE EXT SCH ×2 (08:44→21:11)
[2016-05-20] MEDS: NYSTATIN POWDER 15GM BTL EXT SCH ×3 (08:44→21:11)
[2016-05-20] MEDS: INSULIN ASPART 100 UNITS/ML 3 ML PEN SC SCH ×4 (08:48→21:24)
[2016-05-20 08:56] LABS: BUN/CREATININE RATIO 24.4 (10-20); CREATININE 1.6 mg/dl (0.60-1.20); MAGNESIUM 2.3 mg/dl (1.8-2.4); POTASSIUM 4.9 mmol/L (3.5-5.1)
--- NOTE | 2016-05-20 09:18 | Pharmacy Progress Note ---
Glycemic Control: Progress Nt Date of Service May 20, 2016. Scope Glycemic Pharmacist consulted by Dr Gilmore on 05/17/16 for glycemic control and to write orders per [facility] inpatient glycemic control protocol. Objective Accuchecks BSG (last 24hrs): Test 05/19/16 11:36 05/19/16 16:34 05/19/16 20:36 05/20/16 07:37 Bedside Glucose 225 mg/dl (70-90) 118 mg/dl (70-90) 83 mg/dl (70-90) 97 mg/dl (70-90) Test 05/20/16 07:40 Random Glucose 123 mg/dl (70-99) Laboratory Data (last 24hrs) Test 05/20/16 07:40 Anion Gap 7.0 mmol/L BUN/Creatinine Ratio 24.4 Blood Urea Nitrogen 39 mg/dl Creatinine 1.60 mg/dl Potassium Level 4.9 mmol/L Sodium Level 142 mmol/L White Blood Count 7.03 K/uL HbA1c: Test 05/17/16 14:25 Hemoglobin A1c 6.6 % (4.5-5.6) H Recent Pertinent Medications Outpatient Anti-diabetic Regimen: * Lantus 50-60 units BID * Novolog 25-35 units ACHS * Metformin 500 mg PO BIDM The patient is currently receiving: * Basal insulin: Lantus 35 units every 12 hours * Correctional Insulin: Novolog Correction per scale ACHS Goal Range: Low 110 mg/dL - High 150 mg/dL Correction Factor: 18 mg/dL/unit * Prandial insulin: Per carb ratio of 1 unit per 6 grams CHO consumed * Oral Agents: metformin on hold Risk Factors for Insulin Resistance: * Infection * IVF * Diet Assessment & Plan ASSESSMENT: 05/18/16 * 68 yo T2D F admitted with R lower extremity cellulitis, initiated on basal/ bolus regimen per provider overnight * A1c from this AM 6.6% would be indicative of well-controlled BSGs; however, given age, comorbidities, and recent hypoglycemic episodes, this is likely reflective of an over aggressive outpatient regimen * Per the med rec, 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 * HS BSG last night 91 mg/dL and patient received 50 units of Lantus - per provider's note- plan was to decrease dose but home dose was already given * Fasting BSG this AM 127 mg/dL * Due to hypoglycemic episodes- reduce Lantus dosing --> Start with stress of 1 and total outpatient dose of ~200 units (under estimating home regimen due to hypoglycemic episodes) * Given large boluses of Novolog at home- tighten Novolog slightly * Insulin will be titrated over the next 48 hours as we better understand patient needs * ADA & AACE recommend a goal blood sugar range 140-180 mg/dl for the majority of critically ill & non-critically ill patients. However, more stringent targets may be selected in individual cases. Reduce goal range to 110-150 mg/dL to facilitate better wound healing. 05/20/16 * Nurse called pharmacy overnight to report BSG <100 mg/dL * Pharmacist changed Lantus order to HALF DOSE * Fasting BSG 97 mg/dL * A total of 52 units of basal insulin given yesterday * Decrease ongoing order to 25 units BID * I had tightened Novolog slightly yesterday- may need to loosen today but will reassess at lunch time PLAN FOR INPATIENT GLYCEMIC CONTROL: * Hold outpatient oral diabetes medications * Decrease Basal insulin to LANTUS 25 units SQ BID * Give HALF DOSE (12 units) if BSG <110 mg/dL * Correctional Insulin with NOVOLOG per scale ACHS or Q6hrs while NPO * Goal Range: Low 110 mg/dL - High 150 mg/dL * Correction Factor: 18 mg/dL/unit * Nutritional / Prandial insulin per carb ratio of 1 unit per 6 grams CHO consumed * A1c current- added to D/C instructions * Please note that the plan above was derived based on current level of insulin resistance and hospital stress. These recommendations are appropriate for inpatient admission only. Plan of care upon discharge will need to be reassessed to avoid potential outpatient hypo/hyperglycemia. Thank you.
[2016-05-20] MEDS: INSULIN GLARGINE SOLOSTAR 100 UNITS/ML 3 ML PEN SC SCH ×2 (09:39→21:25)
--- NOTE | 2016-05-20 11:17 | Progress Note ---
Subjective Date of Service: May 20, 2016. Subjective Pt evaluation today including: conversation w/ patient, physical exam, chart review, lab review pt seen in follow up for LLE cellulitis, feeling about the same today, pain controlled, able to ambulate, denies f/c. tolerating abx, no n/v/d abd pain. blood cultures remain negative, wbc improved, 7. some weeping from ant calf but swelling and pain improved. all remaining ros reviewed and are negative. Objective Vital Signs Date Time Temp Pulse Resp B/P Pulse Ox O2 Delivery O2 Flow Rate FiO2 05/20/16 08:00 98 Room Air 05/20/16 06:59 36.7 74 18 143/71 98 Room Air 05/20/16 00:17 36.6 77 20 156/63 96 Room Air 05/20/16 00:00 Room Air 05/19/16 21:22 76 172/78 05/19/16 16:00 97 Room Air 05/19/16 14:47 36.7 73 20 133/80 97 Room Air Physical Exam General Appearance: WD/WN, no apparent distress Eyes: EOMI Neck: supple Respiratory/Chest: lungs clear Cardiovascular: regular rate, rhythm Abdomen: soft Extremities: non-tender Neurologic/Psychiatric: alert, oriented x 3 Skin: normal color Comments: lle with erythema, essentially unchanged but overall improved from line drawn in Er. Edema much improved, no warmth, no tenderness, no active drainage or bleeding on my exam. Laboratory Results Item Value Date Time Blood Culture - Preliminary Resulted 05/17/16 1500 Blood NO GROWTH TO DATE. Blood Culture - Preliminary Resulted 05/17/16 1425 Blood NO GROWTH TO DATE. Last 24 Hours Test 05/19/16 11:36 05/19/16 16:34 05/19/16 20:36 05/20/16 07:37 Bedside Glucose 225 mg/dl 118 mg/dl 83 mg/dl 97 mg/dl Test 05/20/16 07:40 White Blood Count 7.03 K/uL Red Blood Count 3.74 M/uL Hemoglobin 11.1 g/dL Hematocrit 34.3 % Mean Corpuscular Volume 91.7 fL Mean Corpuscular Hemoglobin 29.7 pg Mean Corpuscular Hemoglobin Concent 32.4 g/dl RDW Standard Deviation 47.7 fL RDW Coefficient of Variation 14.2 % Platelet Count 131 K/uL Mean Platelet Volume 9.9 fL Sodium Level 142 mmol/L Potassium Level 4.9 mmol/L Chloride Level 112 mmol/L Carbon Dioxide Level 23 mmol/L Anion Gap 7.0 mmol/L Blood Urea Nitrogen 39 mg/dl Creatinine 1.60 mg/dl Est Creatinine Clear Calc Drug Dose 39.3 ml/min Estimated GFR () 36.9 Estimated GFR (Non- 31.9 BUN/Creatinine Ratio 24.4 Random Glucose 123 mg/dl Calcium Level 9.0 mg/dl Magnesium Level 2.3 mg/dl Assessment and Plan (1) Cellulitis Assessment & Plan: continue abx for now Iv, hopefully she will continue to improve and can transition to po abx soon. avoid additional bactrim. will likely transition to po doxy 100mg po bid with food and cipro upon d/c for additional 7 days (2) Leukocytosis Assessment & Plan: resolved
[2016-05-20] MEDS: CIPROFLOXACIN / D5W 400 MG in PREMIXED IN D5W 200 ML IV SCH ×2 (12:42→23:36)
--- NOTE | 2016-05-20 17:25 | Progress Note ---
Medicine Progress Note Date & Time of Visit: May 20, 2016 at 17:15. Subjective Pt was seen and examined sitting in chair very comfortable watching TV with no distress Pt said that the redness and swelling in her leg is improved denies any fever, chest pain, palpitation, dizziness and SOB Objective Last 8 Hrs Date Time Temp Pulse Resp B/P Pulse Ox O2 Delivery O2 Flow Rate FiO2 05/20/16 15:55 36.7 57 18 168/74 96 Room Air Physical Exam: General- obese, no acute distress Head- atraumatic Eyes- PERRL, EOMI ENT- oropharynx clear Neck- supple, no JVD Lungs- clear to auscultation and percussion Heart- regular rhythm; no murmur Abdomen- normal bowel sounds, soft Extremities- no calf tenderness, LLE swelling and redness improved Neuro- alert, oriented x 3; PERRL, EOMI; no facial palsy Skin- warm & dry Laboratory Results: Last 24 Hours Test 05/19/16 20:36 05/20/16 07:37 05/20/16 07:40 05/20/16 11:23 Bedside Glucose 83 mg/dl 97 mg/dl 169 mg/dl White Blood Count 7.03 K/uL Red Blood Count 3.74 M/uL Hemoglobin 11.1 g/dL Hematocrit 34.3 % Mean Corpuscular Volume 91.7 fL Mean Corpuscular Hemoglobin 29.7 pg Mean Corpuscular Hemoglobin Concent 32.4 g/dl RDW Standard Deviation 47.7 fL RDW Coefficient of Variation 14.2 % Platelet Count 131 K/uL Mean Platelet Volume 9.9 fL Sodium Level 142 mmol/L Potassium Level 4.9 mmol/L Chloride Level 112 mmol/L Carbon Dioxide Level 23 mmol/L Anion Gap 7.0 mmol/L Blood Urea Nitrogen 39 mg/dl Creatinine 1.60 mg/dl Est Creatinine Clear Calc Drug Dose 39.3 ml/min Estimated GFR () 36.9 Estimated GFR (Non- 31.9 BUN/Creatinine Ratio 24.4 Random Glucose 123 mg/dl Calcium Level 9.0 mg/dl Magnesium Level 2.3 mg/dl Test 05/20/16 16:31 Bedside Glucose 196 mg/dl Assessment & Plan LEFT LOWER EXTREMITY CELLULITIS : -lower ext Doppler-negative -Afebrile, No WBC -blood culture no growth as of now -Continue empiric Abx with vancomycin/Cipro -swelling and erythema improved -ID on board recommended to continue IV abx, planning to change abx to po cipro and doxycycline upon discharge for an additional 7 days. FAISAL ON CKD STAGE 3: presents with Cr 3.6-->reduced to 2.0 ---> 1.6 this morning possible related to Bactrim Baseline creat is 1.4 continue IVF Hold home diuretics -Lasix , HCTZ , ACEI Continue monitor BMP SCLERODERMA/PSORIASIS : follows with Rheumatology and Dermatology will change Diet to mechanical soft diet Stable DYSPHAGIA Speech therapy consulted. Pt refused to participate in swallowing assessment No recommendations at this time. Pt understands the risk for aspiration Stable HTN : BP stable cont Atenolol 100 mg PO BID hold diuretics Due to FAISAL Stable TYPE 2 DM: pt reports of episodes of hypoglycemia, A1C 6.3 Lantus dose reduced to 30 U BID, ISS pharmacy consulted for glycemic management FULL CODE DVT PROPHYLAX : moderate to high risk Sub q heparin starting Lower ext Doppler ordered to R/O DVT DISPOSITION : expected to return to home when medically stable will benefit form Home Health visiting nurse to assess improvement of cellulitis of lower ext Social service consulted Consultants: Nephro, ID Current Inpatient Medications: Current Inpatient Medications Medications (Trade) Dose Ordered Sig/Brodie Route Start Time Stop Time Status Last Admin Dose Admin Allopurinol (Zyloprim Tab) 100 mg DAILY PO 05/18/16 09:00 06/17/16 08:59 05/20/16 08:43 100 MG Amitriptyline HCl (Elavil Tab) 100 mg HS PO 05/17/16 21:00 06/16/16 20:59 05/19/16 21:26 100 MG Aspirin (Ecotrin Tab) 81 mg QPM PO 05/17/16 21:00 06/16/16 20:59 05/19/16 21:25 81 MG Atenolol (Tenormin Tab) 100 mg BID PO 05/17/16 21:00 06/16/16 20:59 05/20/16 08:43 100 MG Atorvastatin Calcium (Lipitor Tab) 20 mg QPM PO 05/17/16 21:00 06/16/16 20:59 05/19/16 21:25 20 MG Baclofen (Lioresal Tab) 10 mg BID PO 05/17/16 21:00 06/16/16 20:59 05/20/16 08:42 10 MG Duloxetine HCl (Cymbalta Cap) 60 mg DAILY PO 05/18/16 09:00 06/17/16 08:59 05/20/16 08:43 60 MG EZETIMIBE (Zetia Tab) 10 mg QPM PO 05/17/16 21:00 06/16/16 20:59 05/19/16 21:25 10 MG Fish Oil ([place]-3 (Purified Fish Oil) Cap) 1 gm BID PO 05/17/16 21:00 06/16/16 20:59 05/20/16 08:42 1 GM Fluticasone Propionate (Flonase Nasal [place]) 1 sprays HS AN 05/17/16 21:00 06/16/16 20:59 05/19/16 21:26 1 SPRAYS Multivitamins (Multivitamin Tab) 1 tab QPM PO 05/17/16 21:00 06/16/16 20:59 05/19/16 21:25 1 TAB Clobetasol Propionate (Clobetasol Propionate Oint) 1 appln BID EXT 05/17/16 21:00 06/16/16 20:59 05/20/16 08:44 1 APPLN Miscellaneous Information (Order Awaiting Action) 1 ea QS N/A 05/18/16 00:00 06/17/16 00:00 Methimazole (Methimazole Tab) 10 mg QAM PO 05/18/16 09:00 06/17/16 08:59 05/20/16 08:43 10 MG Nystatin (Mycostatin Powder) 1 appln TID EXT 05/17/16 21:00 06/16/16 20:59 05/20/16 14:14 1 APPLN Glucose (Glucose 40% Gel) 15-30 GRAMS 15 GRAMS... UD PRN PO 05/17/16 19:45 06/16/16 19:44 Glucose (Glucose Chew Tab) 4-8 Tablets 4 Tabl... UD PRN PO 05/17/16 19:45 06/16/16 19:44 Dextrose (Dextrose 50% 50ML Syringe) 25-50ML OF 50% DW IV FOR... UD PRN IV 05/17/16 19:45 06/16/16 19:44 Glucagon (Glucagon Inj) 1 mg UD PRN SQ 05/17/16 19:45 06/16/16 19:44 Miscellaneous Information (Consult Glycemic Management Pharmacy) 1 ea DAILY PRN N/A 05/17/16 19:47 06/16/16 19:46 Ciprofloxacin (Consult) 1 ea UD PRN N/A 05/17/16 20:45 06/16/16 20:44 Insulin Aspart (novoLOG ASPART) SLIDING SCALE ACHS SC 05/17/16 21:00 06/16/16 20:59 05/20/16 12:42 13 UNITS Miscellaneous Information 1 ea 1 ea QS N/A 05/18/16 16:00 06/17/16 15:59 Sodium Chloride (/2 Nss 1000ml) 1,000 ml @ 75 mls/hr [id number] IV 05/19/16 14:30 06/18/16 14:29 05/20/16 04:30 75 MLS/HR Heparin Sodium (Porcine) (Heparin Sq 5000 Unit/0.5ml) 5,000 unit Q8 SQ 05/19/16 22:00 06/18/16 21:59 05/20/16 14:17 5,000 UNIT Diphenhydramine HCl (Benadryl Cap) 25 mg Q6H PRN PO 05/19/16 21:30 06/18/16 21:29 05/19/16 21:45 25 MG Insulin Glargine 25 unit 25 unit BID SC 05/20/16 09:30 06/19/16 09:29 05/20/16 09:39 25 UNIT Ciprofloxacin/ Dextrose/Prmx (Cipro / D5w/ Premixed D5W) 200 ml @ 100 mls/hr Q12H IV 05/20/16 12:00 05/27/16 20:59 05/20/16 12:42 100 MLS/HR
[2016-05-20] MEDS: ASPIRIN 81 MG ECTAB PO SCH (21:15)
[2016-05-20] MEDS: ATORVASTATIN 20 MG TAB PO SCH (21:15)
[2016-05-20] MEDS: AMITRIPTYLINE HCL 100 MG TAB PO SCH (21:16)
[2016-05-20] MEDS: MULTIVITAMIN TAB PO SCH (21:16)
[2016-05-20] MEDS: EZETIMIBE 10MG TAB PO SCH (21:16)
[2016-05-20] MEDS: FLUTICASONE PROPIONATE NA SPR 16 GM BTL NAE SCH (21:16)
[2016-05-21] VITALS: O2SAT 96
[2016-05-21] MEDS: SODIUM CHLORIDE 0.45% 1000ML 1,000 ML IV SCH ×2 (05:54→20:53)
[2016-05-21] MEDS: HEPARIN SOD 5000 UNIT/0.5 ML CARP SQ SCH ×3 (05:55→21:03)
[2016-05-21 06:21] LABS: HEMATOCRIT 36.2 % (37-47); MEAN CELL VOLUME 90.5 fL (80-100); MEAN CORPUSCULAR HEMOGLOBIN 29.8 pg (25-34); MEAN CORPUSCULAR HGB CONC 32.9 g/dl (32-36); MEAN PLATELET VOLUME 9.8 fL (7.4-10.4); PLATELET COUNT 125 K/uL (130-400); WHITE BLOOD COUNT 6.84 K/uL (4.8-10.8)
[2016-05-21 06:49] LABS: BUN/CREATININE RATIO 20.6 (10-20); CALCIUM 8.8 mg/dl (8.5-10.1); CREATININE 1.4 mg/dl (0.60-1.20); MAGNESIUM 2.1 mg/dl (1.8-2.4); POTASSIUM 4.8 mmol/L (3.5-5.1)
[2016-05-21 07:28] VITALS: BP 177/82; PULSE 78; TEMP 36.4; O2SAT 97
[2016-05-21 08:00] VITALS: O2SAT 97
[2016-05-21] MEDS: DULOXETINE HCL 60 MG CAP PO SCH (08:59)
[2016-05-21] MEDS: OMEGA-3 (PURIFIED FISH OIL) 1 GM CAP PO SCH ×2 (08:59→20:56)
[2016-05-21] MEDS: METHIMAZOLE 5 MG TAB PO SCH (08:59)
[2016-05-21] MEDS: ALLOPURINOL 100 MG TAB PO SCH (09:00)
[2016-05-21] MEDS: BACLOFEN 10 MG TAB PO SCH ×2 (09:00→20:57)
[2016-05-21] MEDS: INSULIN ASPART 100 UNITS/ML 3 ML PEN SC SCH ×4 (09:05→22:26)
[2016-05-21] MEDS: INSULIN GLARGINE SOLOSTAR 100 UNITS/ML 3 ML PEN SC SCH ×2 (09:06→21:02)
[2016-05-21] MEDS: NYSTATIN POWDER 15GM BTL EXT SCH ×3 (09:07→20:55)
[2016-05-21] MEDS: CLOBETASOL PROPIONATE 0.05% OINT 15 GM TUBE EXT SCH ×2 (09:07→20:55)
--- NOTE | 2016-05-21 09:20 | Pharmacy Progress Note ---
Glycemic Control: Progress Nt Date of Service May 21, 2016. Scope Glycemic Pharmacist consulted by Dr Gilmore on 05/17/16 for glycemic control and to write orders per [facility] inpatient glycemic control protocol. Objective Accuchecks BSG (last 24hrs): Test 05/20/16 11:23 05/20/16 16:31 05/20/16 20:02 05/21/16 05:50 Bedside Glucose 169 mg/dl (70-90) 196 mg/dl (70-90) 178 mg/dl (70-90) Random Glucose 113 mg/dl (70-99) Test 05/21/16 07:49 Bedside Glucose 81 mg/dl (70-90) Laboratory Data (last 24hrs) Test 05/21/16 05:50 Anion Gap 8.0 mmol/L BUN/Creatinine Ratio 20.6 Blood Urea Nitrogen 29 mg/dl Creatinine 1.40 mg/dl Potassium Level 4.8 mmol/L Sodium Level 144 mmol/L White Blood Count 6.84 K/uL HbA1c: Test 05/17/16 14:25 Hemoglobin A1c 6.6 % (4.5-5.6) H Recent Pertinent Medications Outpatient Anti-diabetic Regimen: * Lantus 50-60 units BID * Novolog 25-35 units ACHS * Metformin 500 mg PO BIDM The patient is currently receiving: * Basal insulin: Lantus 25 units every 12 hours * Correctional Insulin: Novolog Correction per scale ACHS Goal Range: Low 110 mg/dL - High 150 mg/dL Correction Factor: 18 mg/dL/unit * Prandial insulin: Per carb ratio of 1 unit per 6 grams CHO consumed * Oral Agents: metformin on hold Risk Factors for Insulin Resistance: * Infection: Cellulitis - IV Cipro * IVF - IV Cipro mixed in dextrose * Diet: Type 2 DM/ AHA Assessment & Plan ASSESSMENT: 05/18/16 * 68 yo T2D F admitted with R lower extremity cellulitis, initiated on basal/ bolus regimen per provider overnight * A1c from this AM 6.6% would be indicative of well-controlled BSGs; however, given age, comorbidities, and recent hypoglycemic episodes, this is likely reflective of an over aggressive outpatient regimen * Per the med rec, 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 * HS BSG last night 91 mg/dL and patient received 50 units of Lantus - per provider's note- plan was to decrease dose but home dose was already given * Fasting BSG this AM 127 mg/dL * Due to hypoglycemic episodes- reduce Lantus dosing --> Start with stress of 1 and total outpatient dose of ~200 units (under estimating home regimen due to hypoglycemic episodes) * Given large boluses of Novolog at home- tighten Novolog slightly * Insulin will be titrated over the next 48 hours as we better understand patient needs * ADA & AACE recommend a goal blood sugar range 140-180 mg/dl for the majority of critically ill & non-critically ill patients. However, more stringent targets may be selected in individual cases. Reduce goal range to 110-150 mg/dL to facilitate better wound healing. 05/20/16 * Nurse called pharmacy overnight to report BSG <100 mg/dL * Pharmacist changed Lantus order to HALF DOSE * Fasting BSG 97 mg/dL * A total of 52 units of basal insulin given yesterday * Decrease ongoing order to 25 units BID * I had tightened Novolog slightly yesterday- may need to loosen today but will reassess at lunch time 05/21/16 * Fasting BSG = 81mg/dL this morning, will further decrease Lantus dose and loosen CF and CR to prevent hypoglycemia. PLAN FOR INPATIENT GLYCEMIC CONTROL: * Hold outpatient oral diabetes medications * Decrease Basal insulin to LANTUS 20 units SQ BID * Give HALF DOSE (10 units) if BSG <110 mg/dL * Correctional Insulin with NOVOLOG per scale ACHS or Q6hrs while NPO * Goal Range: Low 110 mg/dL - High 150 mg/dL * Loosen: Correction Factor: 20 mg/dL/unit * Loosen: Nutritional / Prandial insulin per carb ratio of 1 unit per 8 grams CHO consumed * Please note that the plan above was derived based on current level of insulin resistance and hospital stress. These recommendations are appropriate for inpatient admission only. Plan of care upon discharge will need to be reassessed to avoid potential outpatient hypo/hyperglycemia. Thank you.
[2016-05-21] MEDS: CIPROFLOXACIN / D5W 400 MG in PREMIXED IN D5W 200 ML IV SCH ×2 (12:59→23:31)
[2016-05-21 15:29] VITALS: BP 173/84; PULSE 78; TEMP 36.5; O2SAT 100
[2016-05-21] MEDS ORDERED: HydrALAZINE HCL 20 MG/ML VIAL IV. PRN (16:15)
--- NOTE | 2016-05-21 16:25 | Progress Note ---
Medicine Progress Note Date & Time of Visit: May 21, 2016 at 16:14. Subjective Pt was seen and examined Sitting in chair comfortable with no discharge Pt said that she feels fine denies any fever, chest pain, palpitation, dizziness and SOB Objective Last 8 Hrs Date Time Temp Pulse Resp B/P Pulse Ox O2 Delivery O2 Flow Rate FiO2 05/21/16 15:29 36.5 78 20 173/84 100 Room Air Physical Exam: General- obese, no acute distress Head- atraumatic Eyes- PERRL, EOMI ENT- oropharynx clear Neck- supple, no JVD Lungs- clear to auscultation and percussion Heart- regular rhythm; no murmur Abdomen- normal bowel sounds, soft Extremities- no calf tenderness, LLE swelling and redness improved Neuro- alert, oriented x 3; PERRL, EOMI; no facial palsy Skin- warm & dry Laboratory Results: Last 24 Hours Test 05/20/16 16:31 05/20/16 20:02 05/21/16 05:50 05/21/16 07:49 Bedside Glucose 196 mg/dl 178 mg/dl 81 mg/dl White Blood Count 6.84 K/uL Red Blood Count 4.00 M/uL Hemoglobin 11.9 g/dL Hematocrit 36.2 % Mean Corpuscular Volume 90.5 fL Mean Corpuscular Hemoglobin 29.8 pg Mean Corpuscular Hemoglobin Concent 32.9 g/dl RDW Standard Deviation 46.1 fL RDW Coefficient of Variation 13.9 % Platelet Count 125 K/uL Mean Platelet Volume 9.8 fL Sodium Level 144 mmol/L Potassium Level 4.8 mmol/L Chloride Level 113 mmol/L Carbon Dioxide Level 23 mmol/L Anion Gap 8.0 mmol/L Blood Urea Nitrogen 29 mg/dl Creatinine 1.40 mg/dl Est Creatinine Clear Calc Drug Dose 44.9 ml/min Estimated GFR () 43.4 Estimated GFR (Non- 37.4 BUN/Creatinine Ratio 20.6 Random Glucose 113 mg/dl Calcium Level 8.8 mg/dl Magnesium Level 2.1 mg/dl Test 05/21/16 11:34 Bedside Glucose 171 mg/dl Assessment & Plan LEFT LOWER EXTREMITY CELLULITIS : -lower ext Doppler-negative -Afebrile, No WBC -blood culture no growth as of now -Continue empiric Abx with Cipro - Vanco was stopped on 1/30 by ID -swelling and erythema improved -ID on board recommended to continue IV abx, planning to change abx to po cipro and doxycycline upon discharge for an additional 7 days. will discharge tomorrow with cipro and doxycycline. FAISAL ON CKD STAGE 3: presents with Cr 3.6-->reduced to 2.0 ---> 1.6---1.4 this morning possible related to Bactrim Baseline creat is 1.4 Will d/c IVF continue to Hold home diuretics -Lasix , HCTZ , ACEI Continue avoiding nephrotoxic agents Continue monitor BMP SCLERODERMA/PSORIASIS : follows with Rheumatology and Dermatology will change Diet to mechanical soft diet Stable DYSPHAGIA Speech therapy consulted. Pt refused to participate in swallowing assessment No recommendations at this time. Pt understands the risk for aspiration Stable HTN : BP elevated cont Atenolol 100 mg PO BID hold diuretics Due to FAISAL will add hydralazine prn TYPE 2 DM: pt reports of episodes of hypoglycemia, A1C 6.3 Lantus dose reduced to 30 U BID, ISS pharmacy consulted for glycemic management FULL CODE DVT PROPHYLAX : moderate to high risk Sub q heparin starting Lower ext Doppler ordered to R/O DVT DISPOSITION : expected to return to home when medically stable will benefit form Home Health visiting nurse to assess improvement of cellulitis of lower ext Social service consulted Consultants: Nephro, TYRONE Current Inpatient Medications: Current Inpatient Medications Medications (Trade) Dose Ordered Sig/Brodie Route Start Time Stop Time Status Last Admin Dose Admin Allopurinol (Zyloprim Tab) 100 mg DAILY PO 05/18/16 09:00 06/17/16 08:59 05/21/16 09:00 100 MG Amitriptyline HCl (Elavil Tab) 100 mg HS PO 05/17/16 21:00 06/16/16 20:59 05/20/16 21:16 100 MG Aspirin (Ecotrin Tab) 81 mg QPM PO 05/17/16 21:00 06/16/16 20:59 05/20/16 21:15 81 MG Atenolol (Tenormin Tab) 100 mg BID PO 05/17/16 21:00 06/16/16 20:59 05/21/16 09:00 100 MG Atorvastatin Calcium (Lipitor Tab) 20 mg QPM PO 05/17/16 21:00 06/16/16 20:59 05/20/16 21:15 20 MG Baclofen (Lioresal Tab) 10 mg BID PO 05/17/16 21:00 06/16/16 20:59 05/21/16 09:00 10 MG Duloxetine HCl (Cymbalta Cap) 60 mg DAILY PO 05/18/16 09:00 06/17/16 08:59 05/21/16 08:59 60 MG EZETIMIBE (Zetia Tab) 10 mg QPM PO 05/17/16 21:00 06/16/16 20:59 05/20/16 21:16 10 MG Fish Oil ([place]-3 (Purified Fish Oil) Cap) 1 gm BID PO 05/17/16 21:00 06/16/16 20:59 05/21/16 08:59 1 GM Fluticasone Propionate (Flonase Nasal [place]) 1 sprays HS AN 05/17/16 21:00 06/16/16 20:59 05/20/16 21:16 1 SPRAYS Multivitamins (Multivitamin Tab) 1 tab QPM PO 05/17/16 21:00 06/16/16 20:59 05/20/16 21:16 1 TAB Clobetasol Propionate (Clobetasol Propionate Oint) 1 appln BID EXT 05/17/16 21:00 06/16/16 20:59 05/21/16 09:07 1 APPLN Miscellaneous Information (Order Awaiting Action) 1 ea QS N/A 05/18/16 00:00 06/17/16 00:00 Methimazole (Methimazole Tab) 10 mg QAM PO 05/18/16 09:00 06/17/16 08:59 05/21/16 08:59 10 MG Nystatin (Mycostatin Powder) 1 appln TID EXT 05/17/16 21:00 06/16/16 20:59 05/21/16 13:44 1 APPLN Glucose (Glucose 40% Gel) 15-30 GRAMS 15 GRAMS... UD PRN PO 05/17/16 19:45 06/16/16 19:44 Glucose (Glucose Chew Tab) 4-8 Tablets 4 Tabl... UD PRN PO 05/17/16 19:45 06/16/16 19:44 Dextrose (Dextrose 50% 50ML Syringe) 25-50ML OF 50% DW IV FOR... UD PRN IV 05/17/16 19:45 06/16/16 19:44 Glucagon (Glucagon Inj) 1 mg UD PRN SQ 05/17/16 19:45 06/16/16 19:44 Miscellaneous Information (Consult Glycemic Management Pharmacy) 1 ea DAILY PRN N/A 05/17/16 19:47 06/16/16 19:46 Ciprofloxacin (Consult) 1 ea UD PRN N/A 05/17/16 20:45 06/16/16 20:44 Insulin Aspart (novoLOG ASPART) SLIDING SCALE ACHS SC 05/17/16 21:00 06/16/16 20:59 05/21/16 12:58 10 UNITS Miscellaneous Information 1 ea 1 ea QS N/A 05/18/16 16:00 06/17/16 15:59 Sodium Chloride (04/20 Nss 1000ml) 1,000 ml @ 75 mls/hr [id number] IV 05/19/16 14:30 06/18/16 14:29 05/21/16 05:54 75 MLS/HR Heparin Sodium (Porcine) (Heparin Sq 5000 Unit/0.5ml) 5,000 unit Q8 SQ 05/19/16 22:00 06/18/16 21:59 05/21/16 05:55 5,000 UNIT Diphenhydramine HCl 25 mg 25 mg Q6H PRN PO 05/19/16 21:30 06/18/16 21:29 05/21/16 13:43 25 MG Ciprofloxacin/ Dextrose/Prmx (Cipro / D5w/ Premixed D5W) 200 ml @ 100 mls/hr Q12H IV 05/20/16 12:00 05/27/16 20:59 05/21/16 12:59 100 MLS/HR Insulin Glargine (Lantus Solostar Pen) 20 unit BID SC 05/21/16 08:30 06/20/16 08:29 05/21/16 09:06 20 UNIT
[2016-05-21 20:45] VITALS: BP 168/71; PULSE 84; TEMP 36.7; O2SAT 97
[2016-05-21] MEDS: FLUTICASONE PROPIONATE NA SPR 16 GM BTL NAE SCH (21:08)
[2016-05-21] MEDS: ATORVASTATIN 20 MG TAB PO SCH (21:08)
[2016-05-21] MEDS: EZETIMIBE 10MG TAB PO SCH (21:09)
[2016-05-21] MEDS: MULTIVITAMIN TAB PO SCH (21:09)
[2016-05-21] MEDS: ASPIRIN 81 MG ECTAB PO SCH (21:10)
[2016-05-21] MEDS: AMITRIPTYLINE HCL 100 MG TAB PO SCH (21:10)
[2016-05-22] VITALS: O2SAT 97
[2016-05-22 00:51] VITALS: BP 160/70; PULSE 82; TEMP 36.8; O2SAT 95
[2016-05-22] MEDS: HEPARIN SOD 5000 UNIT/0.5 ML CARP SQ SCH ×3 (06:12→21:13)
[2016-05-22 07:56] LABS: HEMATOCRIT 35.8 % (37-47); MEAN CELL VOLUME 89.7 fL (80-100); MEAN CORPUSCULAR HEMOGLOBIN 29.3 pg (25-34); MEAN CORPUSCULAR HGB CONC 32.7 g/dl (32-36); MEAN PLATELET VOLUME 9.9 fL (7.4-10.4); PLATELET COUNT 128 K/uL (130-400); RED BLOOD COUNT 3.99 M/uL (4.2-5.4); WHITE BLOOD COUNT 7.14 K/uL (4.8-10.8)
[2016-05-22 08:17] VITALS: BP 171/76; PULSE 77; TEMP 36.3; O2SAT 100
[2016-05-22 09:28] LABS: BUN/CREATININE RATIO 18.9 (10-20); CALCIUM 8.9 mg/dl (8.5-10.1); CREATININE 1.3 mg/dl (0.60-1.20)
[2016-05-22 10:00] VITALS: O2SAT 100
[2016-05-22] MEDS: INSULIN ASPART 100 UNITS/ML 3 ML PEN SC SCH ×4 (10:00→21:04)
[2016-05-22] MEDS: INSULIN GLARGINE SOLOSTAR 100 UNITS/ML 3 ML PEN SC SCH ×2 (10:01→21:13)
[2016-05-22] MEDS: NYSTATIN POWDER 15GM BTL EXT SCH ×3 (10:09→20:50)
[2016-05-22] MEDS: DULOXETINE HCL 60 MG CAP PO SCH (10:10)
[2016-05-22] MEDS: OMEGA-3 (PURIFIED FISH OIL) 1 GM CAP PO SCH ×2 (10:11→20:52)
[2016-05-22] MEDS: BACLOFEN 10 MG TAB PO SCH ×2 (10:11→20:51)
[2016-05-22] MEDS: METHIMAZOLE 5 MG TAB PO SCH (10:11)
[2016-05-22] MEDS: ALLOPURINOL 100 MG TAB PO SCH (10:12)
[2016-05-22] MEDS: CLOBETASOL PROPIONATE 0.05% OINT 15 GM TUBE EXT SCH ×2 (10:18→20:50)
[2016-05-22] MEDS: SODIUM CHLORIDE 0.45% 1000ML 1,000 ML IV SCH (10:18)
--- NOTE | 2016-05-22 11:59 | Pharmacy Progress Note ---
Glycemic Control: Progress Nt Date of Service May 22, 2016. Scope Glycemic Pharmacist consulted by Dr Gilmore on 05/17/16 for glycemic control and to write orders per [facility] inpatient glycemic control protocol. Objective Accuchecks BSG (last 24hrs): Test 05/21/16 16:37 05/21/16 20:32 05/21/16 22:16 05/22/16 07:23 Bedside Glucose 171 mg/dl (70-90) 214 mg/dl (70-90) 180 mg/dl (70-90) Random Glucose 144 mg/dl (70-99) Test 05/22/16 08:02 Bedside Glucose 123 mg/dl (70-90) Laboratory Data (last 24hrs) Test 05/22/16 07:23 Anion Gap 8.0 mmol/L BUN/Creatinine Ratio 18.9 Blood Urea Nitrogen 25 mg/dl Creatinine 1.30 mg/dl Potassium Level 5.0 mmol/L Sodium Level 141 mmol/L White Blood Count 7.14 K/uL HbA1c: Test 05/17/16 14:25 Hemoglobin A1c 6.6 % (4.5-5.6) H Recent Pertinent Medications Outpatient Anti-diabetic Regimen: * Lantus 50-60 units BID * Novolog 25-35 units ACHS * Metformin 500 mg PO BIDM The patient is currently receiving: * Basal insulin: Lantus 20 units every 12 hours * Correctional Insulin: Novolog Correction per scale ACHS Goal Range: Low 110 mg/dL - High 150 mg/dL Correction Factor: 20 mg/dL/unit * Prandial insulin: Per carb ratio of 1 unit per 8 grams CHO consumed * Oral Agents: metformin on hold Risk Factors for Insulin Resistance: * Infection: Cellulitis - IV Cipro * IVF - IV Cipro mixed in dextrose * Diet: Type 2 DM/ AHA Assessment & Plan ASSESSMENT: * 70yo T2DM female with well controlled diabetes as an outpatient on high doses of insulin. May be too aggressive outpatient dosing as A1c is slightly lower than goal (although CDK can make A1c unreliable d/t RCB turnover rate and A1c) * SQ insulin regimen has been titrated daily based on BSG trends. BSGs trending downwards, therefore, both Lantus and bolus insulin parameters have been decreased. * Scr improving --> increased insulin sensitivity occurs with renal impairment. Will keep titrating insulin doses. * Patient has received 65 units of insulin over the past 24hrs * 40 units of basal insulin + 25 units of prandial/correctional insulin * BSGs ranging 81-181mg/dl * ADA & AACE recommend a goal blood sugar range 140-180 mg/dl for the majority of critically ill & non-critically ill patients. However, more stringent targets may be selected in individual cases. Will utilize more stringent target of 110-140mg/dl for a well controlled diabetic at baseline. PLAN FOR INPATIENT GLYCEMIC CONTROL: No changes needed at this time. * Hold outpatient oral diabetes medications * Basal insulin with LANTUS 20 units SQ BID * Administer 1/2 dose if BSG < 110mg/dl * Correctional Insulin with NOVOLOG per scale ACHS or Q6hrs while NPO * Goal Range: Low 110 mg/dL - High 140 mg/dL * Correction Factor: 20 mg/dL/unit * Nutritional / Prandial insulin per carb ratio of 1 unit per 8 grams CHO consumed * Please note that the plan above was derived based on current level of insulin resistance and hospital stress. These recommendations are appropriate for inpatient admission only. Plan of care upon discharge will need to be reassessed to avoid potential outpatient hypo/hyperglycemia. Thank you.
[2016-05-22] MEDS ORDERED: LISINOPRIL/HCTZ 20/12.5MG TAB PO ONE (13:00)
[2016-05-22] MEDS: CIPROFLOXACIN / D5W 400 MG in PREMIXED IN D5W 200 ML IV SCH (16:38)
[2016-05-22 17:00] VITALS: O2SAT 96
--- NOTE | 2016-05-22 17:50 | Progress Note ---
Medicine Progress Note Date & Time of Visit: May 22, 2016 at 17:35. Subjective Pt was seen and examined sitting in chair comfortable with no distress pt said that she feels fine she said that the left foot erythema improved she developed blister in the left feet Denies any chest pain, palpitation, dizziness and sob Objective Last 8 Hrs Date Time Temp Pulse Resp B/P Pulse Ox O2 Delivery O2 Flow Rate FiO2 05/22/16 10:00 100 Room Air Physical Exam: General- obese, no acute distress Head- atraumatic Eyes- PERRL, EOMI ENT- oropharynx clear Neck- supple, no JVD Lungs- clear to auscultation and percussion Heart- regular rhythm; no murmur Abdomen- normal bowel sounds, soft Extremities- no calf tenderness, LLE swelling and redness improved, blisters in left foot Neuro- alert, oriented x 3; PERRL, EOMI; no facial palsy Skin- warm & dry Laboratory Results: Last 24 Hours Test 05/21/16 20:32 05/21/16 22:16 05/22/16 07:23 05/22/16 08:02 Bedside Glucose 214 mg/dl 180 mg/dl 123 mg/dl White Blood Count 7.14 K/uL Red Blood Count 3.99 M/uL Hemoglobin 11.7 g/dL Hematocrit 35.8 % Mean Corpuscular Volume 89.7 fL Mean Corpuscular Hemoglobin 29.3 pg Mean Corpuscular Hemoglobin Concent 32.7 g/dl RDW Standard Deviation 46.2 fL RDW Coefficient of Variation 13.9 % Platelet Count 128 K/uL Mean Platelet Volume 9.9 fL Sodium Level 141 mmol/L Potassium Level 5.0 mmol/L Chloride Level 110 mmol/L Carbon Dioxide Level 23 mmol/L Anion Gap 8.0 mmol/L Blood Urea Nitrogen 25 mg/dl Creatinine 1.30 mg/dl Est Creatinine Clear Calc Drug Dose 48.3 ml/min Estimated GFR () 47.5 Estimated GFR (Non- 41.0 BUN/Creatinine Ratio 18.9 Random Glucose 144 mg/dl Calcium Level 8.9 mg/dl Test 05/22/16 11:47 05/22/16 16:39 Bedside Glucose 205 mg/dl 182 mg/dl Assessment & Plan LEFT LOWER EXTREMITY CELLULITIS : -lower ext Doppler-negative -Afebrile, No WBC -blood culture no growth as of now -Continue empiric Abx with Cipro - Vanco was stopped on 05/18 by ID -swelling and erythema improved -ID on board recommended to continue IV abx, planning to change abx to po cipro and doxycycline upon discharge for an additional 7 days. -will discharge tomorrow with cipro and doxycycline. Blister in Left foot wound consult placed Blister removed by Dr. Arroyo wound cleansed done Pt was educated on dressing continue daily wound care FAISAL ON CKD STAGE 3: presents with Cr 3.6-->reduced to 2.0 ---> 1.6---1.4 ---1.3 this morning possible related to Bactrim Baseline creat is 1.3 d/c IVF continue to Hold home diuretics -Lasix Continue avoiding nephrotoxic agents Restarted lisinopril/Hctz Continue monitor BMP SCLERODERMA/PSORIASIS : follows with Rheumatology and Dermatology will change Diet to mechanical soft diet Stable DYSPHAGIA Speech therapy consulted. Pt refused to participate in swallowing assessment No recommendations at this time. Pt understands the risk for aspiration Stable HTN : BP elevated cont Atenolol 100 mg PO BID Lisinopril/HCTZ resumed Continue hydralazine prn Continue monitor BP TYPE 2 DM: pt reports of episodes of hypoglycemia, A1C 6.3 Lantus dose reduced to 30 U BID, ISS pharmacy consulted for glycemic management FULL CODE DVT PROPHYLAX : moderate to high risk Sub q heparin starting Lower ext Doppler ordered to R/O DVT DISPOSITION : Possible d/c tomorrow will benefit form Home Health visiting nurse to assess improvement of cellulitis of lower ext Wound care consult Consultants: Nephro, ID Current Inpatient Medications: Current Inpatient Medications Medications (Trade) Dose Ordered Sig/Brodie Route Start Time Stop Time Status Last Admin Dose Admin Allopurinol (Zyloprim Tab) 100 mg DAILY PO 05/18/16 09:00 06/17/16 08:59 05/22/16 10:12 100 MG Amitriptyline HCl (Elavil Tab) 100 mg HS PO 05/17/16 21:00 06/16/16 20:59 05/21/16 21:10 100 MG Aspirin (Ecotrin Tab) 81 mg QPM PO 05/17/16 21:00 06/16/16 20:59 05/21/16 21:10 81 MG Atenolol (Tenormin Tab) 100 mg BID PO 05/17/16 21:00 06/16/16 20:59 05/22/16 10:12 100 MG Atorvastatin Calcium (Lipitor Tab) 20 mg QPM PO 05/17/16 21:00 06/16/16 20:59 05/21/16 21:08 20 MG Baclofen (Lioresal Tab) 10 mg BID PO 05/17/16 21:00 06/16/16 20:59 05/22/16 10:11 10 MG Duloxetine HCl (Cymbalta Cap) 60 mg DAILY PO 05/18/16 09:00 06/17/16 08:59 05/22/16 10:10 60 MG EZETIMIBE (Zetia Tab) 10 mg QPM PO 05/17/16 21:00 06/16/16 20:59 05/21/16 21:09 10 MG Fish Oil ([place]-3 (Purified Fish Oil) Cap) 1 gm BID PO 05/17/16 21:00 06/16/16 20:59 05/22/16 10:11 1 GM Fluticasone Propionate (Flonase Nasal [place]) 1 sprays HS AN 05/17/16 21:00 06/16/16 20:59 05/21/16 21:08 1 SPRAYS Multivitamins (Multivitamin Tab) 1 tab QPM PO 05/17/16 21:00 06/16/16 20:59 05/21/16 21:09 1 TAB Clobetasol Propionate (Clobetasol Propionate Oint) 1 appln BID EXT 05/17/16 21:00 06/16/16 20:59 05/22/16 10:18 1 APPLN Miscellaneous Information (Order Awaiting Action) 1 ea QS N/A 05/18/16 00:00 06/17/16 00:00 Methimazole (Methimazole Tab) 10 mg QAM PO 05/18/16 09:00 06/17/16 08:59 05/22/16 10:11 10 MG Nystatin (Mycostatin Powder) 1 appln TID EXT 05/17/16 21:00 06/16/16 20:59 05/22/16 14:00 1 APPLN Glucose (Glucose 40% Gel) 15-30 GRAMS 15 GRAMS... UD PRN PO 05/17/16 19:45 06/16/16 19:44 Glucose (Glucose Chew Tab) 4-8 Tablets 4 Tabl... UD PRN PO 05/17/16 19:45 06/16/16 19:44 Dextrose (Dextrose 50% 50ML Syringe) 25-50ML OF 50% DW IV FOR... UD PRN IV 05/17/16 19:45 06/16/16 19:44 Glucagon (Glucagon Inj) 1 mg UD PRN SQ 05/17/16 19:45 06/16/16 19:44 Miscellaneous Information (Consult Glycemic Management Pharmacy) 1 ea DAILY PRN N/A 05/17/16 19:47 06/16/16 19:46 Ciprofloxacin (Consult) 1 ea UD PRN N/A 05/17/16 20:45 06/16/16 20:44 Insulin Aspart (novoLOG ASPART) SLIDING SCALE ACHS SC 05/17/16 21:00 06/16/16 20:59 05/22/16 14:28 11 UNITS Miscellaneous Information (Order Awaiting Action) 1 ea QS N/A 05/18/16 16:00 06/17/16 15:59 Heparin Sodium (Porcine) (Heparin Sq 5000 Unit/0.5ml) 5,000 unit Q8 SQ 05/19/16 22:00 06/18/16 21:59 05/22/16 14:26 5,000 UNIT Diphenhydramine HCl (Benadryl Cap) 25 mg Q6H PRN PO 05/19/16 21:30 06/18/16 21:29 05/21/16 13:43 25 MG Insulin Glargine (Lantus Solostar Pen) 20 unit BID SC 05/21/16 08:30 06/20/16 08:29 05/22/16 10:01 20 UNIT Hydralazine HCl (HydrALAZINE INJ) 10 mg Q4 PRN IV. 05/21/16 16:15 06/20/16 16:14 HCTZ/Lisinopril (Prinzide 20-12.5MG Tab) 1 tab QAM PO 05/23/16 08:00 06/22/16 07:59 Ciprofloxacin (Cipro Tab) 500 mg BID PO 05/22/16 22:00 05/27/16 19:59
[2016-05-22] MEDS: ASPIRIN 81 MG ECTAB PO SCH (20:52)
[2016-05-22] MEDS: MULTIVITAMIN TAB PO SCH (20:54)
[2016-05-22] MEDS: AMITRIPTYLINE HCL 100 MG TAB PO SCH (20:54)
[2016-05-22] MEDS: FLUTICASONE PROPIONATE NA SPR 16 GM BTL NAE SCH (20:55)
[2016-05-22] MEDS: ATORVASTATIN 20 MG TAB PO SCH (20:55)
[2016-05-22] MEDS: EZETIMIBE 10MG TAB PO SCH (20:55)
[2016-05-22 21:00] VITALS: BP 172/74; PULSE 81
[2016-05-23] MEDS: CIPROFLOXACIN 500 MG TAB PO SCH ×2 (00:09→07:58)
[2016-05-23 00:56] VITALS: BP 159/73; PULSE 73; TEMP 36.6; O2SAT 96
[2016-05-23] MEDS: HEPARIN SOD 5000 UNIT/0.5 ML CARP SQ SCH (06:09)
[2016-05-23 07:41] VITALS: BP_SYST 172; BP_SYST 184; BP_DIAS 80; BP_DIAS 84; PULSE 86; TEMP 36.5; O2SAT 99
[2016-05-23] MEDS: NYSTATIN POWDER 15GM BTL EXT SCH (07:57)
[2016-05-23] MEDS ORDERED: LISINOPRIL/HCTZ 20/12.5MG TAB PO SCH (08:00)
[2016-05-23] MEDS: CLOBETASOL PROPIONATE 0.05% OINT 15 GM TUBE EXT SCH (08:00)
[2016-05-23] MEDS: METHIMAZOLE 5 MG TAB PO SCH (08:02)
[2016-05-23] MEDS: BACLOFEN 10 MG TAB PO SCH (08:02)
[2016-05-23] MEDS: DULOXETINE HCL 60 MG CAP PO SCH (08:02)
[2016-05-23] MEDS: OMEGA-3 (PURIFIED FISH OIL) 1 GM CAP PO SCH (08:03)
[2016-05-23] MEDS: ALLOPURINOL 100 MG TAB PO SCH (08:04)
[2016-05-23 08:07] VITALS: BP 157/72; PULSE 78
[2016-05-23 09:00] VITALS: O2SAT 99
[2016-05-23] MEDS: INSULIN ASPART 100 UNITS/ML 3 ML PEN SC SCH ×2 (09:12→12:50)
[2016-05-23] MEDS: INSULIN GLARGINE SOLOSTAR 100 UNITS/ML 3 ML PEN SC SCH (09:13)
--- NOTE | 2016-05-23 11:41 | Pharmacy Progress Note ---
Glycemic Control: Progress Nt Date of Service May 23, 2016. Scope Glycemic Pharmacist consulted by Dr Gilmore on 05/17/16 for glycemic control and to write orders per [facility] inpatient glycemic control protocol. Objective Accuchecks BSG (last 24hrs): Test 05/22/16 11:47 05/22/16 16:39 05/22/16 20:37 05/23/16 07:51 Bedside Glucose 205 mg/dl (70-90) 182 mg/dl (70-90) 124 mg/dl (70-90) 132 mg/dl (70-90) HbA1c: Test 05/17/16 14:25 Hemoglobin A1c 6.6 % (4.5-5.6) H Recent Pertinent Medications Outpatient Anti-diabetic Regimen: * Lantus 50-60 units BID * Novolog 25-35 units ACHS * Metformin 500 mg PO BIDM The patient is currently receiving: * Basal insulin: Lantus 20 units every 12 hours * Correctional Insulin: Novolog Correction per scale ACHS Goal Range: Low 110 mg/dL - High 150 mg/dL Correction Factor: 20 mg/dL/unit * Prandial insulin: Per carb ratio of 1 unit per 7 grams CHO consumed * Oral Agents: metformin on hold Risk Factors for Insulin Resistance: * Infection * Diet Assessment & Plan ASSESSMENT: * 70yo T2DM female with well controlled diabetes as an outpatient on high doses of insulin. May be too aggressive outpatient dosing as A1c is slightly lower than goal (although CDK can make A1c unreliable d/t RCB turnover rate and A1c) * SQ insulin regimen has been titrated daily based on BSG trends. * Patient has been requiring ~ 70 units of insulin per day for adequate control * BSGs ranging 123-205mg/dl * BSG of 205mg/dl was prior to lunch yesterday --> CR tightened after this value and resultant post-prandial BSGs were 182, 124. * AM fasting BSG is in goal range for inpatient recommendations @ 123-132mg/ dl. No changes needed to basal insulin. * Minimal changes have been required over the past few days to maintain adequate glycemic control. Pharmaciy lesli lsign off of glycemic consult. * ADA & AACE recommend a goal blood sugar range 140-180 mg/dl for the majority of critically ill & non-critically ill patients. However, more stringent targets may be selected in individual cases. Will utilize more stringent target of 110-140mg/dl for a well controlled diabetic at baseline. PLAN FOR INPATIENT GLYCEMIC CONTROL: No changes needed at this time. Pharmacy is signing off of glycemic consult at this time. Please feel free to re-consult pharmacy if needed. * Hold outpatient oral diabetes medications - may resume at discharge. * Basal insulin with LANTUS 20 units SQ BID * Administer 1/2 dose if BSG < 110mg/dl * Correctional Insulin with NOVOLOG per scale ACHS or Q6hrs while NPO * Goal Range: Low 110 mg/dL - High 140 mg/dL * Correction Factor: 20 mg/dL/unit * Nutritional / Prandial insulin per carb ratio of 1 unit per 7 grams CHO consumed * Please note that the plan above was derived based on current level of insulin resistance and hospital stress. These recommendations are appropriate for inpatient admission only. Plan of care upon discharge will need to be reassessed to avoid potential outpatient hypo/hyperglycemia. Thank you.
[2016-05-23] MEDS ORDERED: CIPROFLOXACIN 250 MG TAB PO ONE (12:25)
--- NOTE | 2016-05-23 12:38 | Progress Note ---
Medicine Progress Note Date & Time of Visit: May 23, 2016 at 12:28. Subjective Pt was seen an examined Sitting in bed comfortable with at bedside Pt said that she feels fine denies any chest pain, fever, palpitation, dizziness and sob Nurse showed how to do the dressing Objective Last 8 Hrs Date Time Temp Pulse Resp B/P Pulse Ox O2 Delivery O2 Flow Rate FiO2 05/23/16 09:00 99 Room Air 05/23/16 08:07 78 157/72 05/23/16 07:41 36.5 86 20 184/80 99 Room Air 172/84 Physical Exam: General- obese, no acute distress Head- atraumatic Eyes- PERRL, EOMI ENT- oropharynx clear Neck- supple, no JVD Lungs- clear to auscultation and percussion Heart- regular rhythm; no murmur Abdomen- normal bowel sounds, soft Extremities- no calf tenderness, LLE swelling and redness improved, L foot is wrapped with dressing Neuro- alert, oriented x 3; PERRL, EOMI; no facial palsy Skin- warm & dry Laboratory Results: Last 24 Hours Test 05/22/16 16:39 05/22/16 20:37 05/23/16 07:51 05/23/16 11:59 Bedside Glucose 182 mg/dl 124 mg/dl 132 mg/dl 204 mg/dl Assessment & Plan LEFT LOWER EXTREMITY CELLULITIS : -lower ext Doppler-negative -Afebrile, No WBC -blood culture no growth as of now -Continue empiric Abx with Cipro - Vanco was stopped on 05/18 by ID -swelling and erythema improved -ID on board recommended to continue IV abx, planning to change abx to po cipro and doxycycline upon discharge for an additional 7 days. -will discharge tomorrow with cipro and doxycycline. Blister in Left foot wound consult placed Blister removed by Dr. Arroyo yesterday wound cleansed done Pt was educated on dressing Nurse showed how to do the dressing continue daily dressing care supplemental manager arranged for home health nurse for wound care FAISAL ON CKD STAGE 3: presents with Cr 3.6-->reduced to 2.0 ---> 1.6---1.4 ---1.3 this morning possible related to Bactrim Baseline creat is 1.3 d/c IVF Resume lasix when discharge Continue avoiding nephrotoxic agents Restarted lisinopril/Hctz Continue monitor BMP SCLERODERMA/PSORIASIS : follows with Rheumatology and Dermatology will change Diet to mechanical soft diet Stable DYSPHAGIA Speech therapy consulted. Pt refused to participate in swallowing assessment No recommendations at this time. Pt understands the risk for aspiration Stable HTN : BP elevated cont Atenolol 100 mg PO BID Lisinopril/HCTZ resumed Continue hydralazine prn Continue monitor BP TYPE 2 DM: pt reports of episodes of hypoglycemia, A1C 6.3 Lantus dose reduced to 30 U BID, ISS pharmacy consulted for glycemic management FULL CODE DVT PROPHYLAX : moderate to high risk Sub q heparin starting Lower ext Doppler ordered to R/O DVT DISPOSITION : Discharge home today Home health arranged by onsite case manager for wound care Consultants: TYRONE Toscano Current Inpatient Medications: Current Inpatient Medications Medications (Trade) Dose Ordered Sig/Brodie Route Start Time Stop Time Status Last Admin Dose Admin Allopurinol (Zyloprim Tab) 100 mg DAILY PO 05/18/16 09:00 06/17/16 08:59 05/23/16 08:04 100 MG Amitriptyline HCl (Elavil Tab) 100 mg HS PO 05/17/16 21:00 06/16/16 20:59 05/22/16 20:54 100 MG Aspirin (Ecotrin Tab) 81 mg QPM PO 05/17/16 21:00 06/16/16 20:59 05/22/16 20:52 81 MG Atenolol (Tenormin Tab) 100 mg BID PO 05/17/16 21:00 06/16/16 20:59 05/23/16 08:04 100 MG Atorvastatin Calcium (Lipitor Tab) 20 mg QPM PO 05/17/16 21:00 06/16/16 20:59 05/22/16 20:55 20 MG Baclofen (Lioresal Tab) 10 mg BID PO 05/17/16 21:00 06/16/16 20:59 05/23/16 08:02 10 MG Duloxetine HCl (Cymbalta Cap) 60 mg DAILY PO 05/18/16 09:00 06/17/16 08:59 05/23/16 08:02 60 MG EZETIMIBE (Zetia Tab) 10 mg QPM PO 05/17/16 21:00 06/16/16 20:59 05/22/16 20:55 10 MG Fish Oil ([place]-3 (Purified Fish Oil) Cap) 1 gm BID PO 05/17/16 21:00 06/16/16 20:59 05/23/16 08:03 1 GM Fluticasone Propionate (Flonase Nasal [place]) 1 sprays HS AN 05/17/16 21:00 06/16/16 20:59 05/22/16 20:55 1 SPRAYS Multivitamins (Multivitamin Tab) 1 tab QPM PO 05/17/16 21:00 06/16/16 20:59 05/22/16 20:54 1 TAB Clobetasol Propionate (Clobetasol Propionate Oint) 1 appln BID EXT 05/17/16 21:00 06/16/16 20:59 05/22/16 20:50 1 APPLN Miscellaneous Information (Order Awaiting Action) 1 ea QS N/A 05/18/16 00:00 06/17/16 00:00 Methimazole (Methimazole Tab) 10 mg QAM PO 05/18/16 09:00 06/17/16 08:59 05/23/16 08:02 10 MG Nystatin (Mycostatin Powder) 1 appln TID EXT 05/17/16 21:00 06/16/16 20:59 05/23/16 07:57 1 APPLN Glucose (Glucose 40% Gel) 15-30 GRAMS 15 GRAMS... UD PRN PO 05/17/16 19:45 06/16/16 19:44 Glucose (Glucose Chew Tab) 4-8 Tablets 4 Tabl... UD PRN PO 05/17/16 19:45 06/16/16 19:44 Dextrose (Dextrose 50% 50ML Syringe) 25-50ML OF 50% DW IV FOR... UD PRN IV 05/17/16 19:45 06/16/16 19:44 Glucagon (Glucagon Inj) 1 mg UD PRN SQ 05/17/16 19:45 06/16/16 19:44 Miscellaneous Information (Consult Glycemic Management Pharmacy) 1 ea DAILY PRN N/A 05/17/16 19:47 06/16/16 19:46 Ciprofloxacin (Consult) 1 ea UD PRN N/A 05/17/16 20:45 06/16/16 20:44 Insulin Aspart (novoLOG ASPART) SLIDING SCALE ACHS SC 05/17/16 21:00 06/16/16 20:59 05/23/16 09:12 8 UNITS Miscellaneous Information (Order Awaiting Action) 1 ea QS N/A 05/18/16 16:00 06/17/16 15:59 Heparin Sodium (Porcine) (Heparin Sq 5000 Unit/0.5ml) 5,000 unit Q8 SQ 05/19/16 22:00 06/18/16 21:59 05/23/16 06:09 5,000 UNIT Diphenhydramine HCl (Benadryl Cap) 25 mg Q6H PRN PO 05/19/16 21:30 06/18/16 21:29 05/23/16 10:50 25 MG Insulin Glargine (Lantus Solostar Pen) 20 unit BID SC 05/21/16 08:30 06/20/16 08:29 05/23/16 09:13 20 UNIT Hydralazine HCl (HydrALAZINE INJ) 10 mg Q4 PRN IV. 05/21/16 16:15 06/20/16 16:14 HCTZ/Lisinopril (Prinzide 20-12.5MG Tab) 1 tab QAM PO 05/23/16 08:00 06/22/16 07:59 05/23/16 08:03 1 TAB Ciprofloxacin (Cipro Tab) 500 mg BID PO 05/22/16 22:00 05/27/16 19:59 05/23/16 07:58 500 MG
[2016-05-23] MEDS ORDERED: CPR500 PO (12:53)
[2016-05-23] MEDS ORDERED: INSDGI SC (12:53)
[2016-05-23] MEDS ORDERED: DOXY-300 PO (12:55)
--- NOTE | 2016-05-23 13:07 | Discharge Instructions ---
Discharge Instructions Admission Reason for Admission: Diabetic Foot Infection Discharge Discharge Diagnosis / Problem: LLE Cellulitis/blister, FAISAL ON CKD STAGE 3, DM type 2, Hypertension Discharge Goals Goal(s): Decrease discomfort, Improve function, Improve disease control Activity Recommendations Activity Limitations: resume your previous activity (as tolerated) . Instructions / Follow-Up Instructions / Follow-Up Follow up appointment with your primary care provider Joe OSWALD on May 28 @ 8 :30 am Complete antibiotic course for cipro and doxycycline environmental services manager arranged Home health nurse for wound care Daily dressing changes Check BMP to monitor kidney function Check blood sugar at least twice daily Keep a blood sugar log and bring blood sugar log in the next visit with your PCP Current Hospital Diet Patient's current hospital diet: Diabetes Type 2 Diet, AHA Diet (Heart Healthy) Discharge Diet Recommended Diet: Diabetes Type 2 Diet Pending Studies Studies pending at discharge: no Laboratory Results Hemoglobin A1c Test 05/17/16 14:25 Range/Units Estimated Average Glucose 143 mg/dl Hemoglobin A1c 6.6 H 4.5-5.6 % Medical Emergencies . Who to Call and When: Medical Emergencies: If at any time you feel your situation is an emergency, please call 911 immediately. . Non-Emergent Contact Non-Emergency issues call your: Primary Care Provider Call Non-Emergent contact if: you have a fever, wound has increased drainage, wound has increased redness, wound has increased pain, you have any medication questions . . "Provider Documentation" section prepared by Esther Haney. VTE Core Measure Inpt VTE Proph given/why not?: Unfractionated heparin SQ
[2016-05-23 13:42] VITALS: BP 157/72; PULSE 78; TEMP 36.5; O2SAT 99
[2016-05-23] MEDS ORDERED: CIPROFLOXACIN 250 MG TAB PO SCH (20:00)
--- NOTE | 2016-05-27 06:36 | Discharge Summary ---
Discharge Summary Admission Date: May 17, 2016 at 15:33 Discharge Date: May 23, 2016 Discharge Disposition: Home with services Principal Diagnosis: LLE Cellulitis Secondary Diagnoses/Problems: LLE Cellulitis/blister FAISAL ON CKD STAGE 3 DM type 2 Hypertension SCLERODERMA/PSORIASIS Dysphagia Procedures: [~ rep ct add3]] BILATERAL LOWER EXTREMITY VENOUS DOPPLER HISTORY: Leg swelling /erythema rule out DVT COMPARISON STUDY: None. FINDINGS: There is normal compressibility and flow within the bilateral lower extremity deep venous systems. The patient deferred augmentation of the veins. IMPRESSION: No DVT within the right or left lower extremity. Electronically signed by: Arthur De La Cruz M.D. 05/18/2016 9:27 AM Consultations: Nephro, ID Medication Reconciliation New Medications: Doxycycline (Monohydrate) (Doxycycline) 100 Mg Cap 100 MG PO BID for 7 Days Ciprofloxacin (Ciprofloxacin HCl) 500 Mg Tab 500 MG PO BID for 6 Days, #12 TAB Insulin Glargine (Lantus) 100 Unit/Ml Inj 30 UNITS SC BID for 30 Days, VIAL Continued Medications: Acitretin (Acitretin) 10 Mg Cap 10 MG PO DAILY Allopurinol (Zyloprim) 100 Mg Tab 100 MG PO DAILY, TAB Amitriptyline Hcl (Amitriptyline Hcl) 50 Mg Tab 2 TAB PO HS, TAB Amlodipine (Norvasc) 2.5 Mg Tab 2.5 MG PO QAM, TAB Aspirin (Aspirin Chewable) 81 Mg Chew 81 MG PO QPM Atenolol (Tenormin) 100 Mg Tab 100 MG PO BID, TAB Atorvastatin (Lipitor) 20 Mg Tab 20 MG PO QPM, TAB Baclofen (Lioresal) 10 Mg Tab 10 MG PO BID, TAB Clobetasol Propionate (Clobetasol Propionate) 45 Appln/15 Gm Oint 1 APPLN TOP BID for 30 Days, #60 GM 2 Refills Duloxetine Hcl (Cymbalta) 60 Mg Cap 60 MG PO DAILY, CAP Ezetimibe (Zetia) 10 Mg Tab 10 MG PO QPM, TAB Fish Oil ([place]-3) 1 Ea Cap 1 CAP PO BID, CAP Fluocinonide (Fluocinonide) 0.05 % [place] 1 APPLN TOP BID for 30 Days, #60 ML 3 Refills Fluticasone Propionate (Nasal) (Flonase Allergy Relief) 50 Mcg/Act Spr 1 SPRAY AN HS Furosemide (Lasix) 40 Mg Tab 20 MG PO QAM, TAB Insulin Aspart (Novolog) Inj 25 UNITS SC ACHS, BTL SLIDING SCALE 25-35 UNITS Lisinopril/Hctz (Zestoretic 20MG/12.5MG) Tab 1 TAB PO QAM, TAB Magnesium Oxide (Mag-Ox) 400 Mg Tab 400 MG PO DAILY, TAB Methimazole (Methimazole) 10 Mg Tab 1 TAB PO QAM Multivitamin (Multivitamin) Tab 1 TAB PO QPM, TAB Nystatin (Topical) (Nystatin) 1 Pow Pow 1 APPL EXT TID Discontinued Medications: Insulin Glargine (Lantus) Vial 50 SC BID, VIAL SLIDING SCALE UP TO 60 UNITS Admission Information HPI (per Admitting provider): 70 yo F with past medical hx of Type 2 DM , HTN , scleroderma , Psoriasis . CKD stage 3 presented to ED with complain of pain , swelling and erythema of rt lower ext started since last pt denies of any trauma or injury to her leg , has chronic skin rash -for Psoriasis , scleroderma, gets occasional blisters lower 2/3 of her right leg was found to be dark red , increased warmth , minimum tenderness pt was able to walk , bear weight no fever or chills was seen by Rheumatology in recent visit started on Bactrim DS form 05/14/16 no improvement of symptom came to ED for evaluation found to have persisted rt lower ext Cellulitis , FAISAL Cr > 3 ( baseline Cr 1.4 ) pt will be admitted for IV abx for lower ext cellulitis , IV hydration and nephrology eval for FAISAL Physical Exam (per Admitting): General Appearance: no apparent distress Head: normocephalic, atraumatic Eyes: normal inspection, PERRL, EOMI, sclerae normal Neck: thyroid normal, no carotid bruits, trachea midline Respiratory/Chest: chest non-tender, lungs clear, normal breath sounds, no respiratory distress Cardiovascular: regular rate, rhythm Abdomen/GI: normal bowel sounds, non tender, soft Extremities/Musculoskelatal: + pertinent finding (rt middle leg + ertythema , warmth , tenderness, ) Neurologic/Psych: no motor/sensory deficits, alert, normal mood/affect Skin: + pertinent finding (diffuse scaly plaque on elbow , extremitiy .Psoriatic rash ) Hospital Course LEFT LOWER EXTREMITY CELLULITIS : -lower ext Doppler-negative -Afebrile, No WBC -blood culture no growth as of now -Continue empiric Abx with Cipro - Vanco was stopped on 05/18 by ID -swelling and erythema improved -ID on board recommended to continue IV abx, planning to change abx to po cipro and doxycycline upon discharge for an additional 7 days. -will discharge tomorrow with cipro and doxycycline. Blister in Left foot wound consult placed Blister removed by Dr. Arroyo yesterday wound cleansed done Pt was educated on dressing Nurse showed how to do the dressing continue daily dressing care transaction manager arranged for home health nurse for wound care FAISAL ON CKD STAGE 3: presents with Cr 3.6-->reduced to 2.0 ---> 1.6---1.4 ---1.3 this morning possible related to Bactrim Baseline creat is 1.3 d/c IVF Resume lasix when discharge Continue avoiding nephrotoxic agents Restarted lisinopril/Hctz Continue monitor BMP SCLERODERMA/PSORIASIS : follows with Rheumatology and Dermatology will change Diet to mechanical soft diet Stable DYSPHAGIA Speech therapy consulted. Pt refused to participate in swallowing assessment No recommendations at this time. Pt understands the risk for aspiration Stable HTN : BP elevated cont Atenolol 100 mg PO BID Lisinopril/HCTZ resumed Continue hydralazine prn Continue monitor BP TYPE 2 DM: pt reports of episodes of hypoglycemia, A1C 6.3 Lantus dose reduced to 30 U BID, ISS pharmacy consulted for glycemic management FULL CODE DVT PROPHYLAX : moderate to high risk Sub q heparin starting Lower ext Doppler ordered to R/O DVT DISPOSITION : Discharge home today Home health arranged by supervisor case loading for wound care Total time spent on discharge = 35 minutes This includes examination of the patient, discharge planning, medication reconciliation, and communication with other providers. Discharge Instructions Discharge Instructions Admission Reason for Admission: Diabetic Foot Infection Discharge Discharge Diagnosis / Problem: LLE Cellulitis/blister, FAISAL ON CKD STAGE 3, DM type 2, Hypertension Discharge Goals Goal(s): Decrease discomfort, Improve function, Improve disease control Activity Recommendations Activity Limitations: resume your previous activity (as tolerated) . Instructions / Follow-Up Instructions / Follow-Up Follow up appointment with your primary care provider Joe OSWALD on May 28 @ 8 :30 am Complete antibiotic course for cipro and doxycycline transaction manager arranged Home health nurse for wound care Daily dressing changes Check BMP to monitor kidney function Check blood sugar at least twice daily Keep a blood sugar log and bring blood sugar log in the next visit with your PCP Current Hospital Diet Patient's current hospital diet: Diabetes Type 2 Diet, AHA Diet (Heart Healthy) Discharge Diet Recommended Diet: Diabetes Type 2 Diet Pending Studies Studies pending at discharge: no Laboratory Results Hemoglobin A1c Test 05/17/16 14:25 Range/Units Estimated Average Glucose 143 mg/dl Hemoglobin A1c 6.6 H 4.5-5.6 % Medical Emergencies . Who to Call and When: Medical Emergencies: If at any time you feel your situation is an emergency, please call 911 immediately. . Non-Emergent Contact Non-Emergency issues call your: Primary Care Provider Call Non-Emergent contact if: you have a fever, wound has increased drainage, wound has increased redness, wound has increased pain, you have any medication questions . . "Provider Documentation" section prepared by Esther Haney. VTE Core Measure Inpt VTE Proph given/why not?: Unfractionated heparin SQ Additional Copies To Jennifer Diaz PA-C
[2016-05-27] MEDS ORDERED: CIPR1TAB11 PO (13:55)
--- NOTE | 2016-05-27 14:07 | CONSULTATION REPORT ---
DATE OF CONSULTATION: 05/22/2016 DATE OF CONSULTATION: 05/22/2016. CHIEF COMPLAINT: Blister formation on the left lower extremity and foot. HISTORY OF PRESENT ILLNESS: The patient was recently admitted to [facility] [address] 5 days prior for the evaluation and treatment of cellulitis of the left lower extremity. Over the past 24-36 hours, blister formation began to develop in the leg and has increased. The patient currently denies any fever, chills or night sweats. The patient denies any chest pain, shortness of breath, abdominal discomfort, nausea or vomiting. The patient denies any other systemic complaints at this time. PAST MEDICAL HISTORY: Positive for diabetes, diabetic neuropathy, coronary artery disease. PAST SURGICAL HISTORY: Positive for heart catheterization with 2 stent placements, cholecystectomy, tubal ligation, lumbar discectomy CURRENT MEDICATIONS: Were noted in the nursing notes and were reviewed. ALLERGIES: AMOXICILLIN, CEPHALEXIN, CLAVULANIC ACID, OXYCODONE AND GATIFLOXACIN. REVIEW OF SYSTEMS: Ten systems were reviewed in their entirety and positive findings were noted in the chief complaint and history of present illness. PHYSICAL EXAMINATION: GENERAL: The patient is currently lying in hospital bed in no acute distress, alert and cooperative throughout the examination. VITAL SIGNS: were reviewed and found to be unremarkable. HEAD, EYES, EARS, NOSE, AND THROAT: Pupils equal and reactive to light. Sclerae clear. NECK: Supple. CHEST: Heart and lungs clear to auscultation. EXTREMITIES: Reveals the presence of some swelling and erythema in the left lower extremity. There is blister formation noted around the ankle region and foot. They are clear in nature. There is no active drainage or odor present. Pulses are present. Range of motion appears to be intact. NEUROLOGICAL EXAMINATION: The patient is alert and oriented x3. No focal deficits are noted. IMPRESSION: Cellulitis, left lower extremity with blister formation. PLAN: The sites did require debridement and with the patient's permission and after the application of topical Xylocaine 4%, these blisters were deroofed and epidermal tissue was removed. No significant bleeding occurred. The post-debridement areas will be dressed with Aquacel AG and gauze changed daily. The patient will continue to be monitored while inpatient and will be seeing on an outpatient process upon discharge. The area debrided was intermittent, but comprised approximately 40 square cm.
== END 2016-05-23 14:10 | disposition home health service (06) | DRG 603 ==
LOC: ENRESERVDT → ENRESERVTM → C.EDB 13:40 → C.2T 15:33 → C.MS4W 05-18 14:50
PROVIDERS: ADMIT Hospitalist; ATTEND Internal Medicine
DX: L03.116 Cellulitis of left lower limb (principal); L89.622 Pressure ulcer of left heel, stage 2; E11.9 Type 2 diabetes mellitus without complications; R70.0 Elevated erythrocyte sedimentation rate; E05.00 Thyrotoxicosis with diffuse goiter without thyrotoxic crisis or storm; M34.9 Systemic sclerosis, unspecified; L40.9 Psoriasis, unspecified; M10.9 Gout, unspecified; I12.9 Hypertensive chronic kidney disease with stage 1 through stage 4 chronic kidney disease, or unspecified chronic kidney disease; N18.3 Chronic kidney disease, stage 3 (moderate); D64.9 Anemia, unspecified; Z87.891 Personal history of nicotine dependence; Z79.899 Other long term (current) drug therapy; Z79.82 Long term (current) use of aspirin; Z79.4 Long term (current) use of insulin; Z82.3 Family history of stroke; Z83.3 Family history of diabetes mellitus; Z82.49 Family history of ischemic heart disease and other diseases of the circulatory system; Z83.6 Family history of other diseases of the respiratory system; Z82.5 Family history of asthma and other chronic lower respiratory diseases